=== PATIENT | male | born 1960 | race Two or more races ===

== ENCOUNTER 2020-06-27 12:45 | Outpatient (REF) | payer MEDICARE, MEDICAID, SELFPAY ==
--- NOTE | ~2020-06-27 | CT_ITS ---
EXAMINATION: CT SINUS WITHOUT CONTRAST CLINICAL INFORMATION: 60-year-old with nasal polyps and deviated septum. COMPARISON: 06/06/2014 CT. TECHNIQUE: Volumetric CT imaging of the paranasal sinuses was done with the addition of multiplanar reformatted reconstructions. This CT examination was performed using dose optimization techniques as appropriate, variously including the following: *Automated exposure control. *Adjustment of mA and/or kV according to patient size (this includes techniques or standardized protocols for targeted exams where dose is matched to indication/reason for exam; i.e. extremities or head). *Use of iterative reconstruction technique. DLP: 159.00 mGy-cm FINDINGS: Nasal Cavity: Nasal septum is deviated slightly to the right, stable in appearance. There is polypoid soft tissue density in both nasal cavities, improved on the left and stable on the right since the previous exam consistent with bilateral nasal polyposis. There is complete opacification of the olfactory recesses bilaterally consistent with nasal polyposis. There is deossification of multiple midline and paramidline bony structures consistent with chronic inflammatory changes similar to the previous exam. The nasopharyngeal soft tissues appear unremarkable. Maxillary Sinuses: Completely opacified with thickened bony mccloud consistent with chronic maxillary sinusitis with the ossification of the uncinate processes bilaterally stable in appearance. The ostiomeatal complexes are opacified bilaterally. There is periapical lucency surrounding the left maxillary molar which has developed since the previous exam suggesting the possibility of loosening or infection. Correlate with dental examination. Ethmoid Sinuses: There is complete opacification of the ethmoid complex bilaterally similar to the previous exam, with grossly intact orbital mccloud and fovea ethmoidalis. The orbital soft tissue contents appear grossly unremarkable. Frontal Sinuses: There is complete opacification of the frontal sinuses bilaterally with opacification of the frontal recesses with a probable opacified frontal bullar cell on the right. Sphenoid Sinus: The sphenoid sinus is completely opacified with thickened bony mccloud consistent with chronic sinusitis, unchanged, with opacification of the sphenoid ostia and expansile remodeling of the sphenoethmoidal recesses bilaterally consistent with polyposis, unchanged. Carotid canals are covered by bone. Additional Findings: Visualized mastoids and middle ear cavities are unopacified. Visualized intracranial structures are grossly unremarkable within the limitations of the study with limited visualization. CT/CT sinus wo con IMPRESSION: 1. Bilateral nasal polyposis, as described above, slightly improved on the left from previous exam. 2. Extensive pansinus opacification essentially stable from previous exam with areas of thickening and sclerosis of the paranasal sinus mccloud, unchanged in appearance, consistent with chronic sinus inflammatory disease.
== END 2020-06-27 12:46 | disposition home or self-care (01) ==
LOC: HO.CT 12:45
PROVIDERS: Visit Provider Otolaryngology
DX: J33.0 Polyp of nasal cavity (principal); J34.2 Deviated nasal septum
CPT/HCPCS: 70486

== ENCOUNTER 2020-12-06 11:49 | Outpatient (REF) | payer MEDICARE, MEDICAID, SELFPAY | END 2020-12-06 11:50 | disposition home or self-care (01) | LOC: HO.LAB 11:49 | PROVIDERS: PCP Internal Medicine; Visit Provider Internal Medicine | DX: Z20.822 Contact with and (suspected) exposure to COVID-19 (principal) | CPT/HCPCS: C9803; U0003; U0005 ==

== ENCOUNTER 2022-09-25 10:29 | Outpatient (REF) | payer MEDICARE, MEDICAID, SELFPAY ==
--- NOTE | ~2022-09-25 | XR_ITS ---
EXAMINATION: XR CHEST CLINICAL INFORMATION: Positive TB test COMPARISON: Previous chest x-ray September 2019 TECHNIQUE: 2 views of the chest were obtained. FINDINGS: The cardiac and mediastinal contours are normal. There are small symmetric faint 4 mm nodular densities at the lung bases likely corresponding to nipple shadows. The lungs are otherwise clear. No pleural effusion or pneumothorax. Degenerative changes of the spine. XR/XR chest 2V IMPRESSION: No evidence for acute disease in the chest.
== END 2022-09-25 10:30 | disposition home or self-care (01) ==
LOC: HO.XRAY 10:29
PROVIDERS: PCP Internal Medicine; Visit Provider Internal Medicine
DX: R76.11 Nonspecific reaction to tuberculin skin test without active tuberculosis (principal)
CPT/HCPCS: 71046

== ENCOUNTER 2022-11-04 15:01 | Emergency (ER) | payer MEDICARE, MEDICAID, SELFPAY ==
--- NOTE | ~2022-11-04 | XR_ITS ---
EXAMINATION: XR CHEST CLINICAL INFORMATION: Shortness of breath with chest pain COMPARISON: Previous dated 09/25/2022 TECHNIQUE: Frontal view of the chest was obtained. FINDINGS: Findings suggest mild hazy bilateral opacities the bases may represent areas of atelectasis or infiltrate. No failure or effusion. The cardiac silhouette is comparable The hilar regions are comparable XR/XR chest 1V IMPRESSION: Some patchy opacities at the bases could represent areas of early infiltrate. Recommend PA and lateral films when the patient is able.
[2022-11-04 15:02] VITALS: BP 135/81; PULSE 79; RESP 20; TEMP 36.3; O2SAT 94; BMI 24.4
--- NOTE | 2022-11-04 15:03 | ED_ITS ---
HPI - SOB/Dyspnea General Chief Complaint: Abdominal Pain Stated Complaint: sob Time Seen by Provider: 11/04/22 15:24 Source: patient Mode of arrival: ambulatory Limitations: no limitations History of Present Illness HPI Narrative: 62-year-old male history of asthma presents with shortness of breath and left- sided chest pain. The chest pain started yesterday. It has been intermittent. She is sharp and left-sided. The pain does not radiate. Worse with coughing and deep inspiration. He also describes some shortness of breath. He has been using his albuterol nebulizer and inhaler with no relief. His symptoms started a couple of weeks ago on a been progressively unsteadily getting worse. He denies any fevers or chills. His symptoms are worse with exertion. They are better with rest nebulizer treatment. Patient denies any lower extremity edema, recent travel or recent surgeries. Has no history of PE or DVT. Patient denies a family history of PE or DVT. Patient and significant other describes symptoms as severe which is why he presents to the emergency department Related Data Previous Rx's Medication Instructions Recorded albuterol sulfate 5 mg/mL(0.5 %) 2.5 mg (0.5 mL) inhalation Q6H PRN 12/19/21 solution for nebulization shortness of breath or wheezing #20 mL albuterol sulfate 90 mcg/actuation 2 puff inhalation Q6H PRN 12/19/21 aerosol inhaler shortness of breath or wheezing #6.7 grams Symbicort 160 mcg-4.5 2 puff PO BID 30 days #10.2 grams 02/01/22 mcg/actuation HFA aerosol inhaler (budesonide-formoterol) fluticasone propionate 50 2 spray intranasal DAILY PRN 03/07/22 mcg/actuation nasal allergy symptoms 30 days #15.8 mL spray,suspension cetirizine 10 mg tablet 10 mg PO DAILY PRN for allergies 06/17/22 #90 tabs ruxolitinib 1.5 % topical cream 1 appl topical BID #60 grams 10/09/22 (Opzelura) azithromycin 250 mg tablet 250 mg PO DAILY #6 tabs 11/04/22 prednisone 50 mg tablet 50 mg PO DAILY #5 tabs 11/04/22 Allergies Allergy/AdvReac Type Severity Reaction Status Date / Time No Known Allergies Allergy Verified 10/09/22 13:20 [No Known Allergies*] Review of Systems Review of Systems: CONSTITUTIONAL: Denies weight loss, fever and chills. HEENT: Denies changes in vision and hearing. RESPIRATORY: + SOB and cough. CV: Denies palpitations + CP. GI: Denies abdominal pain, nausea, vomiting and diarrhea. : Denies dysuria and urinary frequency. MSK: Denies myalgia and joint pain. SKIN: Denies rash and pruritus. NEUROLOGICAL: Denies headache and syncope. PSYCHIATRIC: Denies recent changes in mood. Denies anxiety and depression. All other ROS are negative unless in HPI PMFSH Past Medical History Medical History Allergic rhinitis Asthma Depression Overweight (BMI 25.0-29.9) Vitiligo Surgical History No pertinent past surgical history Family History Family History Father No problems noted. Mother No problems noted. Social History Social History Housing: Apartment Alcohol intake: never Patient Tobacco Use Status: Former Tobacco user Smoked in Last 30 Days: No e-Cigarette/Vaping Use: Never Used Second Hand Smoke Exposure: Yes Use of substances other than those prescribed or required for medical reasons: No Advance Directives: No Advance Directives Information Provided: No Current occupational status: retired and disabled Cognitive needs: No Hearing needs: No Vision needs: Yes (reading glasses) Physical Exam Vital Signs: Vital Signs: Last Vital Signs Temp 98.1 F 11/04/22 15:48 Pulse 70 11/04/22 15:48 Resp 15 11/04/22 15:48 BP 132/71 11/04/22 15:48 Pulse Ox 94 11/04/22 15:48 O2 Del Method Room Air 11/04/22 15:48 BMI result Body Mass Index 24.4 GEN: Well developed, no acute distress, alert, oriented HEENT: Normocephalic, atraumatic, normal external ears, nose appears normal, no oropharyngeal edema or exudates Eyes: Normal to appearance Neck: Supple, no lymphadenopathy Respiratory: Talks in complete sentences, no respiratory distress, clear to auscultation bilaterally Cardiovascular: Regular rate and rhythm, no murmurs rubs or gallops Abdomen: Soft, nontender, nondistended, no guarding, no rebound Back: No CVA tenderness Extremities: No clubbing cyanosis or edema Neurologic: No focal neurologic deficits, cranial nerves 2-12 intact, strength is 5/5 bilaterally Skin: No rash Course Course Course Narrative: RME - 62 yo male with history of asthma, sinusitis, seasonal allergies, depression and vitiligo who presents to the ER for evaluation of worsening SOB and asthma for the last 1 week, acutely worse since yesterday. He developed chest pain last night in the left lower chest. Has been using nebs and inhalers with no relief. Wheezy and tachypenic in triage, SpO2 94% Plan: CXR, labs, EKG, nebs. to be brought right back to treatment room Reevaluation(s) Reevaluation #1: Patient is feeling much better. He appears to be breathing much easier. Will discharge at this time on azithromycin and steroids. He can follow up with his regular provider in 2-3 days if needed. Time: 17:11 Medications Administered Discontinued Medications Generic Name Dose Route Start Last Admin Trade Name Freq PRN Reason Stop Dose Admin Albuterol Sulfate 10 mg 11/04/22 15:07 11/04/22 15:25 Albuterol Sulfate (0.083%) 2.5 Mg/3 Ml Vial.Neb INHALE 11/04/22 15:08 10 mg ONCE ONE Administration Albuterol Sulfate 7.5 mg/ 0 mg 11/04/22 15:28 11/04/22 15:32 Albuterol/Ipratropium 3 ml INHALE 11/04/22 15:29 Not Given ONCE ONE Prednisone 60 mg 11/04/22 15:28 11/04/22 16:15 Prednisone 20 Mg Tablet PO 11/04/22 15:29 60 mg ONCE ONE Administration Medical Decision Making Medical Decision Making MDM Narrative: Patient presents with chest pain and shortness of breath. Regarding the chest pain, symptoms started yesterday. I doubt this is cardiac in nature. This most likely pleuritic. Was not reproducible on examination. Will obtain a chest x- ray to rule out any acute cardiopulmonary disease. EKG was nonischemic. Will order set of cardiac enzymes to assure ourselves with this is not acute ischemi a. His symptoms started yesterday and therefore 1 tests should be diagnostic for cardiac/acute coronary syndrome etiology. Patient's predominant complaint is progressive shortness of breath over 2 weeks.. On exam, he had no wheezing, poor air movement but otherwise in no acute distress. I do not appreciate any wheezing. Again will order chest x-ray routine laboratory analysis to make sure there is no anemia, electrolyte abnormality. There was possible bronchitis, pneumonia, viral infection, seasonal allergies. Depending on patient's progress, he may warrant hospitalization. At this time, I will hold that decision until more data is available. Differential Diagnosis Differential Diagnoses: The differential diagnosis associated with the presentation includes (See above) Admission/Observation Consideration of admission/observation: Escalation of care including admission/observation considered Lab Data MDM Lab Attestation statement: I reviewed the patient's lab results. 11/04/22 15:46 11/04/22 15:46 Labs: Lab Results 11/04/22 11/04/22 11/04/22 Range/Units 15:46 15:46 15:47 WBC 7.8 (4.8-10.8) X10*3/uL RBC 5.09 (4.60-5.80) X10*6/uL Hgb 14.4 (14.0-18.0) g/dl Hct 45.8 (42.0-52.0) % MCV 90.0 (80.0-98.0) fL MCH 28.3 (27.0-33.0) pg MCHC 31.4 (31.0-36.0) g/dl RDW 12.1 (11.0-16.0) % Plt Count 226 (160-400) X10*3/uL MPV 10.8 (9.4-12.4) fL Immature Gran % (Auto) 0.3 (0.0-0.4) % Neut % (Auto) 39.6 L (45-73) % Lymph % (Auto) 32.0 (20-40) % Kingfisher % (Auto) 7.7 (2-11) % Eos % (Auto) 19.2 H (0-4) % Baso % (Auto) 1.2 (0-2) % Lymph # (Auto) 2.5 (1.2-4.9) X10*3/uL Kingfisher # (Auto) 0.6 (0.1-1.2) X10*3/uL Eos # (Auto) 1.5 H (0.0-0.4) X10*3/uL Baso # (Auto) 0.1 (0.0-0.2) X10*3/uL Abs Immat Gran (auto) 0.02 (0.00-0.03) X10*3/uL Absolute Neuts (auto) 3.1 (2.0-8.3) x10*3/uL Absolute Nucleated RBC 0.000 (0.0-0.012) X10*3/uL Nucleated RBC % (auto) 0.0 (0.0-0.2) /100WBC Sodium 140 (135-145) mmol/L Potassium 4.0 (3.3-5.1) mmol/L Chloride 109 H (96-108) mmol/L Carbon Dioxide 23 (22-29) mmol/L Anion Gap 12 (12-20) BUN 21 H (9-16) mg/dL Creatinine 1.23 (0.5-1.4) mg/dL Estim Creat Clear Calc 66.5 Estimated GFR 59 Random Glucose 103 (60-115) mg/dL Calcium 9.2 (8.4-10.2) mg/dL Magnesium 2.2 (1.6-2.6) mg/dL Total Bilirubin 0.5 (0.0-1.0) mg/dL Direct Bilirubin 0.2 (0.0-0.5) mg/dL AST 15 (5-37) U/L ALT 8 (0-40) U/L Alkaline Phosphatase 68 (39-117) U/L Troponin I High Sens < 2.7 (<3.5-35.0) ng/L B-Natriuretic Peptide (<100) pg/mL Total Protein 6.5 (6.5-8.0) g/dL Albumin 4.0 (3.5-5.0) g/dL 11/04/22 Range/Units 15:47 WBC (4.8-10.8) X10*3/uL RBC (4.60-5.80) X10*6/uL Hgb (14.0-18.0) g/dl Hct (42.0-52.0) % MCV (80.0-98.0) fL MCH (27.0-33.0) pg MCHC (31.0-36.0) g/dl RDW (11.0-16.0) % Plt Count (160-400) X10*3/uL MPV (9.4-12.4) fL Immature Gran % (Auto) (0.0-0.4) % Neut % (Auto) (45-73) % Lymph % (Auto) (20-40) % Kingfisher % (Auto) (2-11) % Eos % (Auto) (0-4) % Baso % (Auto) (0-2) % Lymph # (Auto) (1.2-4.9) X10*3/uL Kingfisher # (Auto) (0.1-1.2) X10*3/uL Eos # (Auto) (0.0-0.4) X10*3/uL Baso # (Auto) (0.0-0.2) X10*3/uL Abs Immat Gran (auto) (0.00-0.03) X10*3/uL Absolute Neuts (auto) (2.0-8.3) x10*3/uL Absolute Nucleated RBC (0.0-0.012) X10*3/uL Nucleated RBC % (auto) (0.0-0.2) /100WBC Sodium (135-145) mmol/L Potassium (3.3-5.1) mmol/L Chloride (96-108) mmol/L Carbon Dioxide (22-29) mmol/L Anion Gap (12-20) BUN (9-16) mg/dL Creatinine (0.5-1.4) mg/dL Estim Creat Clear Calc Estimated GFR Random Glucose (60-115) mg/dL Calcium (8.4-10.2) mg/dL Magnesium (1.6-2.6) mg/dL Total Bilirubin (0.0-1.0) mg/dL Direct Bilirubin (0.0-0.5) mg/dL AST (5-37) U/L ALT (0-40) U/L Alkaline Phosphatase (39-117) U/L Troponin I High Sens (<3.5-35.0) ng/L B-Natriuretic Peptide 25 (<100) pg/mL Total Protein (6.5-8.0) g/dL Albumin (3.5-5.0) g/dL Independent Interpretation I performed an independent interpretation of an: EKG (Normal sinus rhythm heart rate 70, no acute ST elevations depressions, normal intervals, normal EKG) and Plain X-Ray (Hyperinflated, no evidence of CHF or pneumonia) Independent Historian Clinical information obtained from an independent historian. History obtained from or confirmed by: Spouse Prescription Management I considered prescription management with: Pain Medication and Antibiotic Chronic Conditions Patient?s care impacted by: Other (Chronic sinusitis, reactive airway disease) Discharge Plan Discharge Clinical Impression: Asthma exacerbation, Atypical chest pain Patient Disposition: Home, Self-Care Instructions: Chest Pain (ED), Asthma (ED) Prescriptions: New prednisone 50 mg tablet 50 mg PO DAILY Qty: 5 0RF azithromycin 250 mg tablet 250 mg PO DAILY Qty: 6 0RF Rx Instructions: z pack as directed No Action fluticasone propionate 50 mcg/actuation spray,suspension 2 spray intranasal DAILY PRN (Reason: allergy symptoms) 30 Days Qty: 15.8 5RF cetirizine 10 mg tablet 10 mg PO DAILY PRN (Reason: for allergies) Qty: 90 3RF albuterol sulfate 90 mcg/actuation HFA aerosol inhaler 2 puff inhalation Q6H PRN (Reason: shortness of breath or wheezing) Qty: 6.7 0RF albuterol sulfate 5 mg/mL solution for nebulization 2.5 mg inhalation Q6H PRN (Reason: shortness of breath or wheezing) Qty: 20 0RF budesonide-formoterol [Symbicort] 160-4.5 mcg/actuation HFA aerosol inhaler 2 puff PO BID 30 Days Qty: 10.2 5RF Opzelura 1.5 % cream 1 appl topical BID Qty: 60 0RF Referrals: Kofi Witt MD [Primary Care Provider] - 3 days
--- NOTE | 2022-11-04 15:05 | ECG_ITS ---
Test Reason : SOB Blood Pressure : / mmHG Vent. Rate : 070 BPM Atrial Rate : 070 BPM P-R Int : 172 ms QRS Dur : 098 ms QT Int : 390 ms P-R-T Axes : 078 047 064 degrees QTc Int : 421 ms Normal sinus rhythm Normal ECG When compared with ECG of 12-SEP-2019 20:09, No significant change was found Referred By: Blanche Mart Electronically Signed By:DAVID ARAUZ
[2022-11-04] MEDS: Albuterol Sulfate (0.083%) 2.5 MG/3 ML VIAL.NEB 10 MG INHALE (15:25)
[2022-11-04 15:26] VITALS: RESP 18; O2SAT 94
[2022-11-04 15:48] VITALS: BP 132/71; PULSE 70; RESP 15; TEMP 36.7; O2SAT 94
[2022-11-04 15:52] LABS: MANUAL DIFF FLAG NO
--- NOTE | 2022-11-04 15:53 | PC.NURSE ---
pt alert and orientated, respiratory treatment completed upon initial assessment, minimal wheezing noted in the lower lobes upon auscultation, vss, pt on special weapons and tactics officer showing nsr, pt slighty diaphoretic, labs drawn by tech, will medicate per order, call sinha within reach.
[2022-11-04 15:56] LABS: Basophils Absolute Auto 0.1 X10*3/uL (0.0-0.2); Basophils Percent Auto 1.2 % (0-2); Eosinophils Absolute Auto 1.5 X10*3/uL (0.0-0.4); Eosinophils Percent Auto 19.2 % (0-4); Hematocrit 45.8 % (42.0-52.0); Hemoglobin 14.4 g/dl (14.0-18.0); Imm Gran Abs Auto 0.02 X10*3/uL (0.00-0.03); Imm Gran Pct Auto 0.3 % (0.0-0.4); Lymphocytes Absolute Auto 2.5 X10*3/uL (1.2-4.9); Mean Corpuscular HGB Conc 31.4 g/dl (31.0-36.0); Mean Corpuscular Hemoglobin 28.3 pg (27.0-33.0); Mean Platelet Volume 10.8 fL (9.4-12.4); Monocytes Absolute Auto 0.6 X10*3/uL (0.1-1.2); Monocytes Percent Auto 7.7 % (2-11); Neutrophils Absolute Auto 3.1 x10*3/uL (2.0-8.3); Neutrophils Percent Auto 39.6 % (45-73); Platelet Count 226 X10*3/uL (160-400); Red Blood Count 5.09 X10*6/uL (4.60-5.80); Red Cell Distribution Width 12.1 % (11.0-16.0); White Blood Count 7.8 X10*3/uL (4.8-10.8)
[2022-11-04] MEDS: predniSONE 20 MG TABLET 60 MG PO (16:15)
--- NOTE | 2022-11-04 16:15 | PC.NURSE ---
pt alert and orientated, pt states he uses less WOB after albuterol treatment, pt medicated with prednisone per provider order, NSR, VSS, pt resting comfortably, call sinha placed within reach.
[2022-11-04 16:17] LABS: B Type Natriuretic Peptide 25 pg/mL (<100)
[2022-11-04 16:20] LABS: Alanine Aminotransferase 8 U/L (0-40); Alkaline Phosphatase 68 U/L (39-117); Anion Gap 12 (12-20); Aspartate Amino Transferase 15 U/L (5-37); Bilirubin Direct 0.2 mg/dL (0.0-0.5); Bilirubin Total 0.5 mg/dL (0.0-1.0); Blood Urea Nitrogen 21 mg/dL (9-16); Calcium 9.2 mg/dL (8.4-10.2); Carbon Dioxide 23 mmol/L (22-29); Chloride 109 mmol/L (96-108); Creatinine Clr Calc Pharmacy 66.5; Estimated Glomerular Filt Rate 59; Glucose Random 103 mg/dL (60-115); Magnesium 2.2 mg/dL (1.6-2.6); Sodium 140 mmol/L (135-145); Total Protein 6.5 g/dL (6.5-8.0)
[2022-11-04 16:28] LABS: Troponin-I High Sensitivity < 2.7 ng/L (<3.5-35.0)
[2022-11-04 17:30] VITALS: BP 121/80; PULSE 67; RESP 12; TEMP 36.6; O2SAT 92
--- NOTE | 2022-11-04 17:34 | PC.NURSE ---
pt alert and oriented, estimator paperboard boxes removed, NSR on monitor, VSS, pt discharged and verbalized education.
== END 2022-11-04 17:35 | disposition home or self-care (01) ==
PROVIDERS: Physician Assistant; Emergency Provider Emergency Medicine; PCP Internal Medicine
DX: J45.901 Unspecified asthma with (acute) exacerbation (principal); R07.89 Other chest pain; R06.02 Shortness of breath; Z79.899 Other long term (current) drug therapy
CPT/HCPCS: 36415; 71045; 80048; 80076; 83735; 83880; 84484; 85025; 93005; 94640; 99284; 99285

== ENCOUNTER → 2022-11-06 12:07 | Outpatient (BNVA) | payer MEDICARE, MEDICAID, SELFPAY | PROVIDERS: PCP Internal Medicine; Visit Provider Physician Assistant | DX: Z12.11 Encounter for screening for malignant neoplasm of colon (principal); J45.901 Unspecified asthma with (acute) exacerbation; Z79.52 Long term (current) use of systemic steroids; Z79.899 Other long term (current) drug therapy | CPT/HCPCS: 99202 ==

== ENCOUNTER 2022-11-27 14:37 | Outpatient (AMB) | payer MEDICARE, MEDICAID, SELFPAY ==
[2022-11-27 14:39] VITALS: BP 110/70; PULSE 70; O2SAT 92; BMI 23.7
--- NOTE | 2022-11-27 14:39 | MHC.PC.OV ---
Vital Signs 11/27/22 14:39 Height 6 ft Weight 175 lb BMI 23.7 BP 110/70 Blood Pressure Location Lt brachial Position Sitting Pulse 70 Pulse Source Pulse Oximeter Temp Source Skin Pulse Oximetry (%) 92 Oxygen Delivery Method Room Air Intake Visit Reasons: [facility] [place]-Asthma Intake Note: Patient is here to follow-up after a visit the emergency department at [facility] [place] on 11/04 for asthma Services Rep Required: No Allergies No Known Allergies [No Known Allergies*] Allergy (Verified 11/27/22 14:52) Medication List - Last Reconciled 11/27/22 by ZONIA Mckeon albuterol sulfate 90 mcg/actuation 2 puffs inhalation Q6H PRN albuterol sulfate 2.5 mg (0.5 mL) inhalation Q6H PRN cetirizine 10 mg PO DAILY PRN fluticasone propionate 50 mcg/actuation 2 sprays intranasal DAILY PRN 30 days ruxolitinib 1.5% (Opzelura) 1 appl topical BID Symbicort 160-4.5 mcg/actuation (budesonide-formoterol) 2 puffs PO BID 30 days NS Tobacco use date assessed: 11/27/22 Fall risk assessment: No Falls in past year Last assessed Fall Risk: 11/27/22 HPI [facility] [place]-Asthma HPI Details Patient is a 62-year-old male who presents today to follow-up on [facility] visit 11/04/2022 due to shortness of breath. Patient of Dr. Witt. Medical history significant for asthma, allergic rhinitis, vitiligo among others. Patient presented to emergency department with shortness of breath and left-sided chest pain. Blood work stable, chest x-ray hyperinflated, no evidence of congestive heart failure or pneumonia; EKG was normal. Patient was diagnosed with asthma exacerbation and discharged home with prednisone for 5 days and Z-Basilio. Today, patient reports that he is feeling better, although he still reports intermittent mild wheezing and shortness of breath with activity. Denies cough. Reports clear nasal discharge, reports he will be having sinus surgery soon, will be back for preop clearance next month. Denies shortness of breath at rest or chest pain. Denies fever or chills. Reports that he needs refill on albuterol inhaler. [facility] Medical History Allergic rhinitis Asthma Depression Overweight (BMI 25.0-29.9) Vitiligo Surgical History No pertinent past surgical history Family History Father No problems noted. Mother No problems noted. Social History Housing: Apartment Alcohol intake: never Patient Tobacco Use Status: Former Tobacco user e-Cigarette/Vaping Use: Never Used Second Hand Smoke Exposure: Yes Current occupational status: retired and disabled Cognitive needs: No Hearing needs: No Vision needs: Yes (reading glasses) Questionnaire Thrive Questionnaire Date Thrive assessed: 10/09/22 AUDIT C Alcohol Use Questionnaire (AUDIT-C) 1. How often do you have a drink containing alcohol?: Never 3. How often do you have six or more drinks on one occasion?: Never Total Score: 0 Score Reviewed/Action Taken: No PINO-7 AMB Questionnaire PINO-7 Date PINO - 7 assessed: 10/09/22 Source: Developed by Drs. Bebo George, Lida Somers, Maxwell Andres and colleagues, with an educational darian from [employer]. Review of Systems Const Denies body aches, Denies chills, Denies fever(s) and Denies headache(s) Eyes Denies change in vision ENT Denies dizziness, Denies otalgia, Denies headache(s), Denies nasal discharge, Denies sinus pain and Denies sore throat Card Denies chest pain, Denies edema, Denies lightheadedness, Denies dyspnea and Reports dyspnea on exertion Resp Denies cough, Denies dyspnea, Reports dyspnea on exertion and Reports wheezing GI Denies abdominal pain Denies dysuria Musc Denies myalgias Skin/Breast Denies rash Neuro Denies dizziness and Denies headache(s) Aller/Immun Reports wheezing Physical exam (Primary Care) Vital Signs: Last Vital Signs Pulse 70 11/27/22 14:39 BP 110/70 11/27/22 14:39 Pulse Ox 92 11/27/22 14:39 Oxygen Delivery Method Room Air 11/27/22 14:39 BMI result Body Mass Index 23.7 Tobacco/Smoking Status: Tobacco use Status Tobacco use date assessed 11/27/22 11/27/22 14:45 Patient Tobacco Use Status Former Tobacco user 11/27/22 14:45 e-Cigarette/Vaping Use Never Used 11/27/22 14:45 Thrive Assessment: Date of Thrive Assessment Date Thrive assessed 10/09/22 11/27/22 14:45 Const General: cooperative and no acute distress Orientation/consciousness: patient oriented x3 HENMT Head: Yes normocephalic and Yes atraumatic Ears: TM's normal bilaterally Face and sinus: Yes sinuses nontender Mouth: oropharynx normal and moist mucous membranes Throat: Yes posterior oropharynx normal Eyes General: appearance normal, both eyes and all related structures Pupils: Equal, round and reactive pupils present Neck Neck: Yes normal visual inspection, Yes full ROM and Yes no lymphadenopathy Resp Effort & Inspection: normal respiratory effort and able to speak in complete sentences Auscultation: clear to auscultation bilaterally, no crackles, no rales, no rhonchi and no wheezes Cardio Rate: regular rate Rhythm: regular rhythm Heart sounds: S1 normal heart sound present and S2 normal heart sound present GI Auscultation: normal bowel sounds Skin General skin exam: no rashes or lesions noted Neuro General: patient oriented x3 Cranial nerves: Yes Equal, round and reactive pupils present Gait exam (Neuro): Normal gait present Extrem General: Yes full ROM and No edema Assessment and Plan Assessment & Plan (1) Asthma exacerbation: Code(s): J45.901 - Unspecified asthma with (acute) exacerbation Plan: Lungs are clear to auscultation, although patient reports intermittent wheezing and shortness of breath on exertion, he reports feeling better. Due to patient being still symptomatic will treat with prednisone for 5 days. Patient is to continue Symbicort, albuterol inhaler p.r.n., and cetirizine. Patient has finished antibiotics. Follow-up if no improvement after finishing treatment. Keep appointment with PCP as scheduled or follow-up sooner as needed. Patient agreed with the plan. Medications: New albuterol sulfate 90 mcg/actuation (Ventolin HFA) 2 puffs inhalation Q4-6H PRN 8.5 grams 1RF shortness of breath or wheezing J45.901 - Unspecified asthma with (acute) exacerbation prednisone 40 mg (2 x 20 mg) PO DAILY 5 days 10 tabs 0RF J45.901 - Unspecified asthma with (acute) exacerbation Discontinued albuterol sulfate 90 mcg/actuation Discontinued Reason: Doctor's Order 2 puffs inhalation Q6H PRN 6.7 grams 0RF shortness of breath or wheezing Coding Level of Care Code Est Pt Level 3 (98812) Diagnoses Asthma exacerbation J45.901
== END 2022-11-27 15:31 | disposition home or self-care (01) ==
PROVIDERS: PCP Internal Medicine; Visit Provider Nurse Practitioner Family
DX: J45.901 Unspecified asthma with (acute) exacerbation (principal)
CPT/HCPCS: 99213

== ENCOUNTER 2022-12-31 10:34 | Outpatient (AMB) | payer MEDICARE, MEDICAID, SELFPAY ==
--- NOTE | 2022-12-31 10:39 | MHC.PC.OV ---
Vital Signs 12/31/22 10:40 Height 6 ft Weight 178 lb 2 oz BMI 24.2 BP 120/78 Blood Pressure Location Lt brachial Position Sitting Pulse 70 Pulse Source Pulse Oximeter Pulse Oximetry (%) 96 Oxygen Delivery Method Room Air Intake Visit Reasons: pre-op Intake Note: Patient is here for a Pre-op for sinus surgery scheduled Dr. John (ENT in [place] )with on 01/23/23. Web Designer Required: No Service Correspondent: Not Required per policy Accompanied by: Self / Same As Patient Allergies No Known Allergies [No Known Allergies*] Allergy (Verified 12/31/22 10:40) Medication List - Last Reconciled 12/31/22 by Den Wells MD albuterol sulfate 90 mcg/actuation (Ventolin HFA) 2 puffs inhalation Q4-6H PRN albuterol sulfate 2.5 mg (0.5 mL) inhalation Q6H PRN cetirizine 10 mg PO DAILY PRN fluticasone propionate 50 mcg/actuation 2 sprays intranasal DAILY PRN 30 days prednisone 40 mg (2 x 20 mg) PO DAILY 5 days ruxolitinib 1.5% (Opzelura) 1 appl topical BID Symbicort 160-4.5 mcg/actuation (budesonide-formoterol) 2 puffs PO BID 30 days NS Tobacco use date assessed: 12/31/22 HPI pre-op HPI Details having sinus surgery next month; has controlled asthma; no history of CAD [facility] Medical History Allergic rhinitis Asthma Depression Overweight (BMI 25.0-29.9) Vitiligo Surgical History No pertinent past surgical history Family History Father No problems noted. Mother No problems noted. Social History Housing: Apartment Alcohol intake: never Patient Tobacco Use Status: Former Tobacco user e-Cigarette/Vaping Use: Never Used Second Hand Smoke Exposure: Yes service: No Current occupational status: retired and disabled Cognitive needs: No Hearing needs: No Vision needs: Yes (reading glasses) Questionnaire Thrive Questionnaire Date Thrive assessed: 10/09/22 PINO-7 AMB Questionnaire PINO-7 Date PINO - 7 assessed: 10/09/22 Source: Developed by Drs. Bebo George, Lida Somers, Maxwell Andres and colleagues, with an educational darian from [employer]. Review of Systems Const Denies chills, Denies fatigue, Denies headache(s) and Denies weight loss Eyes Denies change in vision, Denies diplopia and Denies eye pain ENT Denies vertigo, Denies dizziness, Denies headache(s) and Denies nasal discharge Card Denies chest pain, Denies rapid heart rate and Denies dyspnea on exertion Resp Denies chest congestion, Denies cough, Denies pain with cough and Denies dyspnea on exertion GI Denies abdominal pain, Denies hematochezia and Denies change in bowel habits Musc Denies myalgias, Denies arthralgias and Denies joint swelling Skin/Breast Denies lesions and Denies unusual bruising Neuro Denies vertigo, Denies dizziness, Denies headache(s) and Denies focal weakness Endo Denies fatigue Physical exam (Primary Care) Vital Signs: Last Vital Signs Pulse 70 12/31/22 10:40 BP 120/78 12/31/22 10:40 Pulse Ox 96 12/31/22 10:40 Oxygen Delivery Method Room Air 12/31/22 10:40 BMI result Body Mass Index 24.2 Tobacco/Smoking Status: Tobacco use Status Tobacco use date assessed 12/31/22 12/31/22 10:51 Patient Tobacco Use Status Former Tobacco user 12/31/22 10:51 e-Cigarette/Vaping Use Never Used 12/31/22 10:51 Thrive Assessment: Date of Thrive Assessment Date Thrive assessed 10/09/22 12/31/22 10:51 Const General: cooperative, healthy appearing and no acute distress Orientation/consciousness: oriented to person, oriented to place and oriented to time HENVT Head: Yes normal to inspection, Yes normocephalic and Yes atraumatic Mouth: Normal oral and palatal mucosa present and tongue normal Throat: Yes posterior oropharynx normal and Yes uvula midline Eyes General: appearance normal, both eyes and all related structures Neck Neck: Yes normal visual inspection, Yes full ROM and Yes no lymphadenopathy Thyroid: Thyroid normal Carotids: normal carotid upstroke Chest Chest palpation & inspection: normal inspection of the chest Resp Effort & Inspection: normal respiratory effort and able to speak in complete sentences Auscultation: clear to auscultation bilaterally Cardio Jugular venous distension: no JVD Palpation: normal PMI Rate: regular rate Rhythm: regular rhythm Heart sounds: S1 normal heart sound present and S2 normal heart sound present GI Inspection: Yes normal to inspection Palpation (GI): Soft to palpation and No hepatosplenomegaly present Auscultation: normal bowel sounds General: Yes no CVA tenderness Back/Spine/Pelvis Back: no CVA tenderness Skin General skin exam: no rashes or lesions noted Neuro General: oriented to person, oriented to place and oriented to time Extrem General: Yes normal to inspection and Yes full ROM Assessment and Plan Assessment & Plan (1) Preop exam for internal medicine: Code(s): Z01.818 - Encounter for other preprocedural examination Plan: low risk of cardiovascular complications; cleared for surgery (2) Asthma: Code(s): J45.909 - Unspecified asthma, uncomplicated Qualifiers: Asthma severity: moderate Asthma persistence: persistent Asthma complication type: uncomplicated Qualified Code(s): J45.40 - Moderate persistent asthma, uncomplicated Plan: well controlled Coding Level of Care Code Est Pt Level 4 (62730) Diagnoses Preop exam for internal medicine Z.81 Asthma J45.40 Asthma severity: moderate Asthma persistence: persistent Asthma complication type: uncomplicated
[2022-12-31 10:40] VITALS: BP 120/78; PULSE 70; O2SAT 96; BMI 24.2
== END 2022-12-31 11:03 | disposition home or self-care (01) ==
PROVIDERS: PCP Internal Medicine; Visit Provider Internal Medicine
DX: Z01.818 Encounter for other preprocedural examination (principal); J45.40 Moderate persistent asthma, uncomplicated
CPT/HCPCS: 99214

== ENCOUNTER 2023-02-12 12:36 | Emergency (ER) | payer MEDICARE, MEDICAID, SELFPAY ==
--- NOTE | ~2023-02-12 | CT_ITS ---
EXAMINATION: CT ABDOMEN AND PELVIS WITHOUT CONTRAST CLINICAL INFORMATION: Left flank pain. Acute kidney insufficiency. COMPARISON: None available. TECHNIQUE: Multidetector volumetric imaging was performed from the superior aspect of the liver through the pubic symphysis. Sagittal and coronal reformatted images were obtained on the technologist's workstation. This CT examination was performed using dose optimization techniques as appropriate, variously including the following: *Automated exposure control *Adjustment of mA and/or kV according to patient size (this includes techniques or standardized protocols for targeted exams where dose is matched to indication/reason for exam; i.e. extremities or head) *Use of iterative reconstruction technique DLP: 455 mGy-cm FINDINGS: LUNG BASES: The visualized lung bases are unremarkable. LIVER, GALLBLADDER, AND BILIARY TREE: The liver is normal in size, shape, and attenuation. No focal hepatic lesion or biliary ductal dilatation is present. The gallbladder is unremarkable with no evidence of radiopaque gallstones, gallbladder wall thickening, or obvious pericholecystic inflammatory changes. PANCREAS: Unremarkable. SPLEEN: Unremarkable. ADRENAL GLANDS: Unremarkable. KIDNEYS AND URETERS: The kidneys are normal in size, shape, and attenuation. No hydronephrosis, hydroureter, or calculi seen. No perinephric stranding. BLADDER: Unremarkable. GASTROINTESTINAL TRACT: The small and large bowel are unremarkable. The appendix is unremarkable. ABDOMINAL WALL: No significant hernia is appreciated. LYMPH NODES: Normal. VASCULAR: Unremarkable. PELVIC VISCERA: Slightly enlarged measuring 4 x 5 cm in AP and transverse dimension OSSEOUS STRUCTURES: Unremarkable. CT/CT abdomen pelvis wo IV con IMPRESSION: Slightly enlarged prostate gland. Otherwise unremarkable exam. The kidneys are normal appearing. Fleischner guidelines were followed.
--- NOTE | ~2023-02-12 | XR_ITS ---
EXAMINATION: XR RIBS, LEFT CLINICAL INFORMATION: Reason for Exam L lower rib pain COMPARISON: Chest radiograph 11/04/2022 TECHNIQUE: 3 views of the Left ribs. 1 view of the chest. FINDINGS: No displaced rib fracture. Clear lungs. No pneumothorax. No pleural effusion. Normal cardiomediastinal silhouette. XR/XR ribs LT min 3V w CXR1V IMPRESSION: No displaced rib fracture. Please note that rib radiographs have low sensitivity for detection of rib fractures and if continued clinical concern CT chest is advised.
[2023-02-12 13:33] VITALS: BP 121/69; PULSE 59; RESP 18; TEMP 36.6; O2SAT 95; BMI 23.9
--- NOTE | 2023-02-12 13:37 | ED_ITS ---
HPI - General Adult General Chief complaint: Back Pain/Injury Stated complaint: L side back pain Time Seen by Provider: 02/12/23 19:41 History of Present Illness HPI narrative: Patient is a 62-year-old male presents emergency department for evaluation of left flank pain. He reports sudden onset 3 days ago. He noticed it while standing at home without any precipitating injury your movements such as forward bending or lifting. The pain has been constant in nature with varying intensity since its onset. It is made worse with particular movements. Has had some intermittent radiation to the left thigh. He has had minimal relief with Tylenol. He reports a history of similar pain in the past, uncertain of the etiology and states he received a prescription for ?a long pill? that relieves the pain. Denies fevers, chills, dysuria, hematuria, urinary frequency/urgency/hesitancy, constipation, diarrhea, abdominal pain, nausea, vomiting, saddle anesthesia, numbness or tingling of the extremities. Related Data Previous Rx's Medication Instructions Recorded albuterol sulfate 5 mg/mL(0.5 %) 2.5 mg (0.5 mL) inhalation Q6H PRN 12/19/21 solution for nebulization shortness of breath or wheezing #20 mL fluticasone propionate 50 2 spray intranasal DAILY PRN 03/07/22 mcg/actuation nasal allergy symptoms 30 days #15.8 mL spray,suspension cetirizine 10 mg tablet 10 mg PO DAILY PRN for allergies 06/17/22 #90 tabs ruxolitinib 1.5 % topical cream 1 appl topical BID #60 grams 10/09/22 (Opzelura) albuterol sulfate 90 mcg/actuation 2 puff inhalation Q4-6H PRN 11/27/22 aerosol inhaler (Ventolin HFA) shortness of breath or wheezing #8.5 grams prednisone 20 mg tablet 40 mg (2 x 20 mg) PO DAILY 5 days 11/27/22 #10 tabs Symbicort 160 mcg-4.5 2 puff PO BID 30 days #10.2 grams 12/26/22 mcg/actuation HFA aerosol inhaler (budesonide-formoterol) cyclobenzaprine 10 mg tablet 10 mg PO TID PRN muscle spasm #10 02/12/23 tabs Allergies Allergy/AdvReac Type Severity Reaction Status Date / Time No Known Allergies Allergy Verified 02/12/23 13:33 [No Known Allergies*] Review of Systems 2 Review of Systems: Yes all other systems are reviewed and are negative [facility] Past Medical History Attestation statement: The following information was validated with the patient. Source: old records reviewed Medical History Depression Vitiligo Overweight (BMI 25.0-29.9) Allergic rhinitis Asthma Surgical History No pertinent past surgical history Family History Family History Father No problems noted. Mother No problems noted. Social History Social History Housing: Apartment Alcohol intake: never Patient Tobacco Use Status: Former Tobacco user e-Cigarette/Vaping Use: Never Used Second Hand Smoke Exposure: Yes Advance Directives: No Advance Directives Information Provided: No service: No Current occupational status: retired and disabled Cognitive needs: No Hearing needs: No Vision needs: Yes (reading glasses) Physical Exam ED Vital Signs: Vital Signs - 24 hr 02/12/23 13:33 02/12/23 20:52 Temperature 97.9 F 98.1 F Pulse Rate 59 56 Respiratory Rate 18 16 Blood Pressure 121/69 127/64 Pulse Oximetry 95 97 Oxygen Delivery Method Room Air Room Air BMI result Body Mass Index 23.9 Appearance: Alert.?Oriented to person, place and time. No acute distress.?Normal affect. Neck: Normal inspection.? Neck supple.?? CVS: Heart sounds normal. Normal heart rate and rhythm.? Pulses normal.?? Respiratory: No respiratory distress.? Lung sounds clear to auscultation bilaterally?? Abdomen: Soft and non-tender. Normoactive bowel sounds. Left CVA tenderness Back: No tenderness upon palpation to the lumbar region? Skin: Skin warm and dry.? Normal skin color.? Normal skin turgor.? No rashes or lesions? Extremities: No lower extremity edema.? No calf ttp? Neuro: Moves all extremities spontaneously. Sensation intact bilaterally. No focal neuro deficits. Ambulates with normal steady gait. Course Course Course Narrative: RME: 62-year-old male with a medical history of vitiligo, asthma complaining of left flank pain x1 week with intermittent radiation down LLE. Denies urinary symptoms, injury chest trauma or fall + left CVAT noted. No rash. No midline spinous tenderness Labs, rib x-ray, UA ordered Full HPI, ROS and PE to be performed by primary ED provider. Reevaluation(s) Reevaluation #1: CT of the abdomen and pelvis revealing a slightly enlarged prostate gland otherwise unremarkable without acute findings. Discussed these findings with patient. Pain was alleviated with cyclobenzaprine. Likely muscular strain. Advised outpatient follow-up with primary care provider, rest, ice, gentle stretching exercises. Reviewed worrisome signs and symptoms that would warrant re-evaluation in the emergency department. Stable for discharge. Time: 22:17 Medications Administered Discontinued Medications Generic Name Dose Route Start Last Admin Trade Name Freq PRN Reason Stop Dose Admin Cyclobenzaprine HCl 10 mg 02/12/23 20:04 02/12/23 20:38 Cyclobenzaprine Hcl 10 Mg Tablet PO 02/12/23 20:05 10 mg ONCE ONE Administration Sodium Chloride 1,000 mls @ 999 mls/hr 02/12/23 20:15 02/12/23 20:47 Ns IV 02/12/23 21:15 999 mls/hr .Q1H1M YADIRA Administration Lidocaine 1 patch 02/12/23 20:04 02/12/23 20:38 Lidocaine 4 % Patch Adh..Patch TRANSDERMA 02/12/23 20:05 1 patch ONCE ONE Administration Protocol Medical Decision Making Medical Decision Making [facility] Narrative: Patient is a 62 old male who presents emergency department for evaluation of left flank pain as per HPI, overall he is well-appearing, nontoxic, afebrile. He does have left CVA tenderness upon palpation, the lumbar region is without tenderness of the paraspinal muscles, no midline tenderness, step-offs, deformities. Reviewed urinalysis which does not show evidence of infection or microscopic hematuria. CMP revealing a mild JULIA with BUN consistent with baseline, creatinine of 1.4 with most recent comparison 1.2, urine is concentrated I suspect most likely these are due to mild dehydration, patient to receive 1 L normal saline IVF. Plan to obtain CT of the abdomen pelvis to exclude hydronephrosis, ureteral calculi, or additional etiology. Less likely to be gastrointestinal etiology; diverticulitis, colitis, obstruction, appendicitis. Muscular strain/ Radicular pain is possible as well. Patient to receive cyclobenzaprine and lidocaine patch while awaiting CT scan. Differential Diagnosis Differential Diagnoses: The differential diagnosis associated with the presentation includes (As noted above) Admission/Observation Consideration of admission/observation: Escalation of care including admission/observation considered (I initially considered admission upon initial evaluation, See course narrative for further detail after workup) Lab Data MDM Lab Attestation statement: I reviewed the patient's lab results. (See narrative above for further detail) 02/12/23 13:48 02/12/23 13:48 Labs: Lab Results 02/12/23 Range/Units 13:48 WBC 6.6 (4.8-10.8) X10*3/uL RBC 4.79 (4.60-5.80) X10*6/uL Hgb 13.6 L (14.0-18.0) g/dl Hct 44.0 (42.0-52.0) % MCV 91.9 (80.0-98.0) fL MCH 28.4 (27.0-33.0) pg MCHC 30.9 L (31.0-36.0) g/dl RDW 12.4 (11.0-16.0) % Plt Count 225 (160-400) X10*3/uL MPV 11.8 (9.4-12.4) fL Immature Gran % (Auto) 0.3 (0.0-0.4) % Neut % (Auto) 43.8 L (45-73) % Lymph % (Auto) 32.8 (20-40) % [place] % (Auto) 10.7 (2-11) % Eos % (Auto) 11.2 H (0-4) % Baso % (Auto) 1.2 (0-2) % Lymph # (Auto) 2.2 (1.2-4.9) X10*3/uL [place] # (Auto) 0.7 (0.1-1.2) X10*3/uL Eos # (Auto) 0.7 H (0.0-0.4) X10*3/uL Baso # (Auto) 0.1 (0.0-0.2) X10*3/uL Abs Immat Gran (auto) 0.02 (0.00-0.03) X10*3/uL Absolute Neuts (auto) 2.9 (2.0-8.3) x10*3/uL Absolute Nucleated RBC 0.000 (0.0-0.012) X10*3/uL Nucleated RBC % (auto) 0.0 (0.0-0.2) /100WBC Sodium 140 (135-145) mmol/L Potassium 4.2 (3.3-5.1) mmol/L Chloride 106 (96-108) mmol/L Carbon Dioxide 25 (22-29) mmol/L Anion Gap 13 (12-20) BUN 23 H (9-16) mg/dL Creatinine 1.44 H (0.5-1.4) mg/dL Estim Creat Clear Calc 56.8 Estimated GFR 49 Random Glucose 69 (60-115) mg/dL Calcium 9.4 (8.4-10.2) mg/dL Urine Color Yellow Urine Appearance Clear Urine pH 5.5 (5.0-9.0) Ur Specific [place] >= 1.030 H (1.005-1.025) Urine Protein Trace (Neg-Trace) mg/dL Urine Glucose (UA) Negative (Negative) mg/dL Urine Ketones Trace (Negative) mg/dL Urine Blood Negative (Negative) Urine Nitrite Negative (Negative) Ur Leukocyte Esterase Negative (Negative) Radiology Impression Discussion of test interpretation with radiology: I have reviewed the radiologist's reading. Radiologist Impression: CT/CT abdomen pelvis wo IV con IMPRESSION: Slightly enlarged prostate gland. Otherwise unremarkable exam. The kidneys are normal appearing. External Record Review External record reviewed: Outpatient record Prescription Management I considered prescription management with: Pain Medication Discharge Plan Discharge Clinical Impression: Thoracic back pain Patient Disposition: Home, Self-Care Additional Instructions: CT did not show any findings to explain the pain that your experiencing. I sent a prescription for cyclobenzaprine to your pharmacy, do not drive, drink alcohol, or work while taking this medication. Please contact your primary care provider to arrange for a follow-up visit. Return back to emergency department any new or worsening symptoms or concerns. Prescriptions: New cyclobenzaprine 10 mg tablet 10 mg PO TID PRN (Reason: muscle spasm) Qty: 10 0RF No Action fluticasone propionate 50 mcg/actuation spray,suspension 2 spray intranasal DAILY PRN (Reason: allergy symptoms) 30 Days Qty: 15.8 5RF cetirizine 10 mg tablet 10 mg PO DAILY PRN (Reason: for allergies) Qty: 90 3RF budesonide-formoterol [Symbicort] 160-4.5 mcg/actuation HFA aerosol inhaler 2 puff PO BID 30 Days Qty: 10.2 5RF albuterol sulfate 5 mg/mL solution for nebulization 2.5 mg inhalation Q6H PRN (Reason: shortness of breath or wheezing) Qty: 20 0RF albuterol sulfate [Ventolin HFA] 90 mcg/actuation HFA aerosol inhaler 2 puff inhalation Q4-6H PRN (Reason: shortness of breath or wheezing) Qty: 8.5 1RF prednisone 20 mg tablet 40 mg PO DAILY 5 Days Qty: 10 0RF Opzelura 1.5 % cream 1 appl topical BID Qty: 60 0RF Referrals: Kofi Witt MD [Primary Care Provider] - Interventions: ED Discharge Assessment Last Done: 02/12/23 22:27 Discharge Date/Time: 02/12/23 22:28
[2023-02-12 14:02] LABS: MANUAL DIFF FLAG NO
[2023-02-12 14:05] LABS: Appearance Urine Clear; Color Urine Yellow; Glucose Urine UA Negative (Negative); Leukocyte Esterase Urine Negative (Negative); Nitrite Urine Negative (Negative); PH 5.5 (5.0-9.0); Specific Gravity - Urine >= 1.030 (1.005-1.025); Urine Blood Negative (Negative); Urine Ketones Trace mg/dL (Negative); Urine Protein Trace mg/dL (Neg-Trace)
[2023-02-12 14:09] LABS: Basophils Absolute Auto 0.1 X10*3/uL (0.0-0.2); Basophils Percent Auto 1.2 % (0-2); Eosinophils Absolute Auto 0.7 X10*3/uL (0.0-0.4); Eosinophils Percent Auto 11.2 % (0-4); Hemoglobin 13.6 g/dl (14.0-18.0); Imm Gran Abs Auto 0.02 X10*3/uL (0.00-0.03); Imm Gran Pct Auto 0.3 % (0.0-0.4); Lymphocytes Absolute Auto 2.2 X10*3/uL (1.2-4.9); Lymphocytes Percent Auto 32.8 % (20-40); Mean Corpuscular HGB Conc 30.9 g/dl (31.0-36.0); Mean Corpuscular Hemoglobin 28.4 pg (27.0-33.0); Mean Corpuscular Volume 91.9 fL (80.0-98.0); Mean Platelet Volume 11.8 fL (9.4-12.4); Monocytes Absolute Auto 0.7 X10*3/uL (0.1-1.2); Monocytes Percent Auto 10.7 % (2-11); Neutrophils Absolute Auto 2.9 x10*3/uL (2.0-8.3); Neutrophils Percent Auto 43.8 % (45-73); Platelet Count 225 X10*3/uL (160-400); Red Blood Count 4.79 X10*6/uL (4.60-5.80); Red Cell Distribution Width 12.4 % (11.0-16.0); White Blood Count 6.6 X10*3/uL (4.8-10.8)
[2023-02-12 14:23] LABS: Anion Gap 13 (12-20); Blood Urea Nitrogen 23 mg/dL (9-16); Calcium 9.4 mg/dL (8.4-10.2); Carbon Dioxide 25 mmol/L (22-29); Chloride 106 mmol/L (96-108); Creatinine Clr Calc Pharmacy 56.8; Estimated Glomerular Filt Rate 49; Glucose Random 69 mg/dL (60-115); Potassium 4.2 mmol/L (3.3-5.1); Sodium 140 mmol/L (135-145)
[2023-02-12] MEDS: Cyclobenzaprine HCl 10 MG TABLET PO (20:38)
[2023-02-12] MEDS: Lidocaine 4 % Patch ADH..PATCH 1 PATCH TRANSDERMA (20:38)
[2023-02-12] MEDS: 0.9 % Sodium Chloride 1,000 ML 999 ML IV (20:47)
[2023-02-12 20:52] VITALS: BP 127/64; PULSE 56; RESP 16; TEMP 36.7; O2SAT 97
== END 2023-02-12 22:28 | disposition home or self-care (01) ==
PROVIDERS: Physician Assistant; Emergency Provider Emergency Medicine; PCP Internal Medicine
DX: M54.50 Low back pain, unspecified (principal); M79.605 Pain in left leg; M54.6 Pain in thoracic spine; R07.81 Pleurodynia; R10.2 Pelvic and perineal pain; Z79.899 Other long term (current) drug therapy; Z87.891 Personal history of nicotine dependence
CPT/HCPCS: 36415; 71101; 74176; 80048; 81003; 85025; 99283; 99284

== ENCOUNTER 2023-03-11 10:38 | Outpatient (AMB) | payer MEDICARE, MEDICAID, SELFPAY ==
[2023-03-11 10:45] VITALS: BP 110/78; PULSE 78; O2SAT 94; BMI 25.0
--- NOTE | 2023-03-11 10:45 | A.OFFPC_ITS ---
Vital Signs 03/11/23 10:45 Height 6 ft Weight 184 lb BMI 25.0 BP 110/78 Blood Pressure Location Lt brachial Position Sitting Pulse 78 Pulse Source Pulse Oximeter Pulse Oximetry (%) 94 Oxygen Delivery Method Room Air Intake Visit Reasons: [facility] [place]-02/12-L side back pain Sales Planning Coordinator Required: No Accompanied by: Self / Same As Patient Allergies No Known Allergies [No Known Allergies*] Allergy (Verified 03/11/23 11:23) Medication List - Last Reconciled 03/11/23 by Kofi Witt MD albuterol sulfate 90 mcg/actuation (Ventolin HFA) 2 puffs inhalation Q4-6H PRN albuterol sulfate 2.5 mg (0.5 mL) inhalation Q6H PRN cetirizine 10 mg PO DAILY PRN cyclobenzaprine 10 mg PO TID PRN fluticasone propionate 50 mcg/actuation 2 sprays intranasal DAILY PRN 30 days prednisone 40 mg (2 x 20 mg) PO DAILY 5 days ruxolitinib 1.5% (Opzelura) 1 appl topical BID Symbicort 160-4.5 mcg/actuation (budesonide-formoterol) 2 puffs PO BID 30 days NS Tobacco use date assessed: 03/11/23 Fall risk assessment: No Falls in past year Last assessed Fall Risk: 03/11/23 Dental Screening Dental Screen Date: 03/11/23 Did you have a dental visit in the last 12 months?: No Did you have a dental problem in the last 6 months where you did not have access to dental care?: No Was dental information given to patient?: No HPI [facility]12[facility] side back pain HPI Details Patient comes in today for his [facility] follow up visit States that he went to the ER a few weeks ago on 02/12/2023 for sudden onset of acute pain over his left flank area 3 days prior Notes that his flank pain persisted and he went to the ER when it started radiation down into his thigh and he did not experience any significant relief after taking some OTC Tylenol Labs done in the ER showed no explanation of his flank pain Abdominal and pelvic CT done also came out negative He was sent home with Rx for Cyclobenzaprine 10 mg TID PRN, which he states helped somewhat but he recalls taking some Ibuprofen 800 mg that he found at [facility] and states that the medication relieved his pain completely for a few hours Would like to see if he can get an Rx for Ibuprofen States that his left flank pain has since resolved and has not bothered him for about a week or so now but he would still like to have an Rx for Ibuprofen on hand States that he has also been using his Symbicort inhaler twice a day regularly but seems to be experiencing frequent asthma flare ups lately and only by taking some oral prednisone can he get his asthma controlled Is currently still experiencing some chest tightness and occasional pressure in his chest Notes also (+) on and off wheezing lately, with (+) FARIA when his asthma acts up He denies any fever or sore throat; denies any headaches or dizziness Denies any exertional chest pains No nausea/vomiting, no abdominal pain No change in bowel habits noted [facility] Medical History Depression Vitiligo Overweight (BMI 25.0-29.9) Allergic rhinitis Asthma Surgical History No pertinent past surgical history Family History Father No problems noted. Mother No problems noted. Social History Housing: Apartment Alcohol intake: never Patient Tobacco Use Status: Former Tobacco user e-Cigarette/Vaping Use: Never Used Second Hand Smoke Exposure: Yes service: No Current occupational status: retired and disabled Cognitive needs: No Hearing needs: No Vision needs: Yes (reading glasses) Questionnaire PHQ-9 Over the last 2 weeks, how often have you been bothered by any of the following problems? 1. Little interest or pleasure in doing things: not at all 2. Feeling down, depressed, or hopeless: not at all 3. Trouble falling or staying asleep, or sleeping too much: not at all 4. Feeling tired or having little energy: not at all 5. Poor appetite or overeating: not at all 6. Feeling bad about yourself - or that you are a failure or have let yourself or your family down: not at all 7. Trouble concentrating on things, such as reading the newspaper or watching television: not at all 8. Moving or speaking so slowly that other people could have noticed. Or the opposite - being so fidgety or restless that you have been moving around a lot more than usual: not at all 9. Thoughts that you would be better off or of hurting yourself in some way: not at all Total score: 0 Depression Screening Interpretation: Negative Depression Screening Done: Yes 36916 - PHQ-9 Billing: Yes Source: Developed by Drs. Bebo George, Lida Somers, Maxwell Andres and colleagues, with an educational darian from [employer]. Thrive Questionnaire Date Thrive assessed: 03/11/23 I am a: Patient What is your living situation today?: I have a steady place to live Within the past 12 months, did the food you bought not last and you didn't have the money to get more?: Never true Within the past 12 months, did you worry whether your food would run out before you got money to buy more?: Never true Do you have trouble paying for medicines?: No Do you have trouble getting transportation to medical appointments?: No Do you have trouble paying your heating and electricity bill?: No Do you have trouble taking care of your child, family member or friend?: No Do you have trouble with day-to-day activities such as bathing, preparing meals, shopping, managing finances, etc.?: No Are you currently unemployed and looking for a job?: No Are you interested in more education?: No Please select the resources that you would like help with: None Currently or been in a relationship where the following occur: no concerns reported AUDIT C Alcohol Use Questionnaire (AUDIT-C) 1. How often do you have a drink containing alcohol?: Never 3. How often do you have six or more drinks on one occasion?: Never Total Score: 0 Score Reviewed/Action Taken: Yes PINO-7 AMB Questionnaire PINO-7 Date PINO - 7 assessed: 03/11/23 Feeling nervous, anxious, or on edge: 0 = Not at all Not being able to stop or control worryin = Not at all Worrying too much about different things: 0 = Not at all Trouble relaxin = Not at all Being so restless that it is hard to sit still: 0 = Not at all Becoming easily annoyed or irritable: 0 = Not at all Feeling afraid as if something awful might happen: 0 = Not at all Total PINO-7 score (0-4 normal; 5-9 mild; 10-14 moderate; 15-21 severe): 0 Source: Developed by Drs. Bebo George, Lida Somers, Maxwell Andres and colleagues, with an educational darian from [employer]. Review of Systems Const Denies chills, Reports fatigue, Denies fever(s) and Denies headache(s) ENT Denies dysphagia, Denies dizziness, Denies otalgia, Denies headache(s), Denies neck pain, Denies odynophagia and Denies sore throat Card Denies chest pain, Denies palpitations and Reports dyspnea on exertion Resp Reports chest congestion (chest feels tight often lately), Reports cough (on and off, mostly non-productive), Denies pain with cough, Reports dyspnea on exertion and Reports wheezing (on and off) GI Denies abdominal pain, Denies constipation, Denies dysphagia, Denies heartburn, Denies diarrhea, Denies nausea, Denies odynophagia and Denies vomiting Denies dysuria, Denies nocturia and Denies urinary frequency Musc Denies back pain (his recent left flank pain appears resolved) and Denies neck pain Neuro Denies dizziness and Denies headache(s) Endo Reports fatigue and Denies palpitations Aller/Immun Reports wheezing (on and off) Physical exam (Primary Care) Vital Signs: Last Vital Signs Pulse 78 03/11/23 10:45 BP 110/78 03/11/23 10:45 Pulse Ox 94 03/11/23 10:45 Oxygen Delivery Method Room Air 03/11/23 10:45 BMI result Body Mass Index 25.0 Tobacco/Smoking Status: Tobacco use Status Tobacco use date assessed 03/11/23 03/11/23 10:48 Patient Tobacco Use Status Former Tobacco user 03/11/23 10:48 e-Cigarette/Vaping Use Never Used 03/11/23 10:48 PHQ-9: PHQ-9 Score PHQ-9: Total score 0 03/11/23 10:48 Depression Screening Interpretation: Negative Thrive Assessment: Date of Thrive Assessment Date Thrive assessed 03/11/23 03/11/23 10:48 Currently or been in a relationship where the following occur: no concerns reported Const General: no acute distress and alert HENMT Ears: TM's normal bilaterally and EAC's normal Throat: Yes posterior oropharynx normal and Yes tonsils normal (no TP congestion) Neck Neck: Yes no lymphadenopathy and Yes supple Thyroid: Thyroid normal Resp Auscultation: wheezes expiratory wheezes (scattered bilaterally) and diminished lung sounds bilateral Cardio Rate: regular rate Rhythm: regular rhythm Heart sounds: no murmurs GI Palpation (GI): Soft to palpation and nontender Auscultation: normal bowel sounds General: Yes no CVA tenderness Back/Spine/Pelvis Back: no CVA tenderness Thoracic/Lumbar Spine: thoracic and lumbar spine normal to inspection Skin Other: (+) scattered multiple hypopigmented patches on the face, especially over the perioral areas Extrem General: Yes no clubbing, cyanosis or edema Assessment and Plan Assessment & Plan (1) Poorly controlled persistent asthma: Code(s): J45.998 - Other asthma Plan: Patient has reportedly been experiencing frequent/recurrent asthma exacerbations lately requiring oral Prednisone therapy DESPITE using his ICS/LABA combination Rx (Symbicort 160-4.5 mcg 2 inhalations BID) regularly Continue Albuterol HFA 2 inahalation Q 6 hours PRN; will ADD Montelukast 10 mg Q PM Will also refer him to pulmonary for further evaluation and management (2) Left flank pain: Code(s): R10.9 - Unspecified abdominal pain Plan: Appears resolved currently - no tenderness reproduced or elicited on exam of the left flank area; was most likely due to an acute muscle strain as his recent abdominal and pelvic CT did not show any pathology to help explain his flank pain Per request, will provide patient with Rx for Ibuprofen 800 mg TID PRN but have advised him to take this ONLY as needed, especially with the possibility that he may currently have some issues going on with his kidneys, which we are going to look into further at present (3) Acute renal insufficiency: Code(s): N28.9 - Disorder of kidney and ureter, unspecified Plan: Patient is advised that his recent labs done at the ER earlier this month showed a significant change in his serum creatinine and GFR compared to his previous numbers, concerning for some progression of potential renal disease Will have him recheck this (CMP) CATHY for follow up If his repeat labs show consistent results, will need to consider referring him to nephrology for further evaluation and management (4) Allergic rhinitis: Code(s): J30.9 - Allergic rhinitis, unspecified Qualifiers: Allergic rhinitis trigger: unspecified Allergic rhinitis seasonality: unspecified Qualified Code(s): J30.9 - Allergic rhinitis, unspecified Plan: Continue Cetirizine 10 mg QD PRN and Fluticasone 50 mcg nasal spray QD PRN (5) Vitiligo: Code(s): L80 - Vitiligo Plan: Patient requested for trial of Opzelura earlier this year for his vitiligo but this was denied by insurance Follow up with dermatology as scheduled Plan To return as schedule in October 2023 for his annual physical examination unless his repeat labs show results consistent with a significant decline in his renal function - we will need to see him back earlier then for follow up of this issue Orders: Orders Microalbumin, Random (w Creat) Today N28.9 - Disorder of kidney and ureter, unspecified UA CC w/rflx Micro + Cult Today N28.9 - Disorder of kidney and ureter, unspecified Vitamin D 25-OH Total Today E55.9 - Vitamin D deficiency, unspecified, N28.9 - Disorder of kidney and ureter, unspecified Comprehensive Met. Panel Today N28.9 - Disorder of kidney and ureter, unspecified Referrals Pulmonary Medicine Referral J45.998 - Other asthma Medications: New montelukast 10 mg PO QPM 90 tabs 3RF 90 days J45.998 - Other asthma ibuprofen Take with food, and only as needed for pain 800 mg PO Q8H PRN 90 tabs 0RF pain Refilled prednisone 40 mg (2 x 20 mg) PO DAILY 10 tabs 0RF 5 days J45.901 - Unspecified asthma with (acute) exacerbation Coding Level of Care Code Est Pt Level 4 (94995) Diagnoses Poorly controlled persistent asthma J45.998 Left flank pain R10.9 Acute renal insufficiency N28.9 Allergic rhinitis, unspecified seasonality, unspecified trigger J30.9 Allergic rhinitis trigger: unspecified Allergic rhinitis seasonality: unspecified Vitiligo L80
== END 2023-03-11 11:31 | disposition home or self-care (01) ==
PROVIDERS: PCP Internal Medicine; Visit Provider Internal Medicine
DX: J45.998 Other asthma (principal); R10.9 Unspecified abdominal pain; N28.9 Disorder of kidney and ureter, unspecified; J30.9 Allergic rhinitis, unspecified; L80 Vitiligo
CPT/HCPCS: 99214

== ENCOUNTER 2023-03-17 11:49 | Outpatient (REF) | payer MEDICARE, MEDICAID, SELFPAY ==
[2023-03-17 13:01] LABS: Alanine Aminotransferase 9 U/L (0-40); Albumin Level 4.1 g/dL (3.5-5.0); Alkaline Phosphatase 80 U/L (39-117); Anion Gap 10 (12-20); Aspartate Amino Transferase 13 U/L (5-37); Bilirubin Total 0.5 mg/dL (0.0-1.0); Blood Urea Nitrogen 25 mg/dL (9-16); Calcium 9.1 mg/dL (8.4-10.2); Carbon Dioxide 26 mmol/L (22-29); Chloride 109 mmol/L (96-108); Estimated Glomerular Filt Rate > 60; Glucose Random 105 mg/dL (60-115); Potassium 3.9 mmol/L (3.3-5.1); Sodium 141 mmol/L (135-145); Total Protein 6.8 g/dL (6.5-8.0); Vitamin D 25-OH Total 26.5 ng/mL (>30)
[2023-03-17 13:42] LABS: Appearance Urine Clear; Color Urine Yellow; Glucose Urine UA Negative (Negative); Leukocyte Esterase Urine Negative (Negative); Nitrite Urine Negative (Negative); PH 6.5 (5.0-9.0); Specific Gravity - Urine 1.025 (1.005-1.025); Urine Blood Negative (Negative); Urine Ketones Negative (Negative); Urine Protein Negative (Neg-Trace)
[2023-03-17 14:24] LABS: Creatinine Urine 203.36 mg/dL; Microalbum/Creatinine Ratio Ur 5.4 ug/mg cr (<30)
== END 2023-03-17 11:50 | disposition home or self-care (01) ==
LOC: HO.LAB 11:49
PROVIDERS: PCP Internal Medicine; Visit Provider Internal Medicine
DX: N28.9 Disorder of kidney and ureter, unspecified (principal); E55.9 Vitamin D deficiency, unspecified
CPT/HCPCS: 36415; 80053; 81003; 82043; 82306; 82570

== ENCOUNTER 2023-04-08 14:33 | Outpatient (AMB) | payer MEDICARE, MEDICAID, SELFPAY ==
[2023-04-08 14:36] VITALS: BP 126/70; PULSE 76; O2SAT 93; BMI 24.4
--- NOTE | 2023-04-08 14:36 | A.OFFVIS_ITS ---
Intake Vital Signs 04/08/23 14:36 Height 6 ft Weight 180 lb BMI 24.4 BP 126/70 Blood Pressure Location Rt brachial Position Sitting Pulse 76 Pulse Source Doppler Pulse Oximetry (%) 93 Oxygen Delivery Method Room Air Intake Visit Reasons: asthma Allergies No Known Allergies [No Known Allergies*] Allergy (Verified 04/08/23 14:37) HPI asthma HPI Details 63-year-old gentleman, former approximat annel 20-25 pack-year smoker, quit 2017, with underlying history of asthma with multiple recent exacerbations and recent nasal surgery referred for evaluation of his asthma symptoms. Patient states that his ENT has just started him on Dupixent for underlying environmental allergies. He is using albuterol MDI, nebs, Singulair, and Symbicort, still with suboptimal control. He denies family history of lung disease. He does complain of multiple environmental allergies. [facility] Medical History Depression Vitiligo Overweight (BMI 25.0-29.9) Allergic rhinitis Asthma Surgical History No pertinent past surgical history Family History Father No problems noted. Mother No problems noted. Social History Housing: Apartment Alcohol intake: never Patient Tobacco Use Status: Former Tobacco user e-Cigarette/Vaping Use: Never Used Second Hand Smoke Exposure: Yes service: No Current occupational status: retired and disabled Cognitive needs: No Hearing needs: No Vision needs: Yes (reading glasses) Review of Systems Const Denies daytime sleepiness, Denies excessive sweating, Denies fatigue, Denies fever(s), Denies lethargy, Denies malaise, Denies night sweats, Denies snoring and Denies weight loss Eyes Denies blurry vision and Denies itchy eyes ENT Denies nasal congestion, Denies post nasal drip, Denies sinus pain, Denies sinus pressure and Denies other ( Thrush) Card Denies chest pain, Denies pedal edema, Denies dyspnea, Denies orthopnea and Denies paroxysmal nocturnal dyspnea Resp Denies cough, Denies hemoptysis, Denies excessive phlegm production, Denies dyspnea, Denies snoring and Denies wheezing GI Denies abdominal pain and Denies heartburn Musc Denies myalgias, Denies arthralgias and Denies joint swelling Skin/Breast Denies rash Neuro Denies memory loss and Denies seizure-like activity Psych Denies abnormal sleep pattern, Denies anxiety and Denies memory loss Endo Denies excessive sweating, Denies fatigue and Denies heat intolerance Cheo/Lymph Denies easy bruising Aller/Immun Denies itchy eyes, Denies seasonal rhinorrhea and Denies wheezing Physical Exam Vital Signs: Last Vital Signs Pulse 76 04/08/23 14:36 BP 126/70 04/08/23 14:36 Pulse Ox 93 04/08/23 14:36 Oxygen Delivery Method Room Air 04/08/23 14:36 BMI result Body Mass Index 24.4 Const General: no acute distress and alert Nutritional Appearance: not obese Orientation/consciousness: Other orientation findings ( oriented) HEENT Head: Yes atraumatic Eyes General: appearance normal, both eyes and all related structures Sclerae: sclerae normal EOM: EOMs intact bilaterally Neck Neck: Yes supple Lymphatic: no lymphadenopathy noted Resp Effort & Inspection: normal respiratory effort and no use of accessory muscles Auscultation: clear to auscultation bilaterally Cardio Rate: regular rate Rhythm: regular rhythm Heart sounds: no gallops, no murmurs and no rubs Skin General skin exam: other ( warm) Extrem General: No clubbing, No cyanosis and No edema Assessment & Plan Assessment & Plan (1) Asthma: Code(s): J45.909 - Unspecified asthma, uncomplicated Qualifiers: Asthma severity: moderate Asthma persistence: persistent Asthma complication type: uncomplicated Qualified Code(s): J45.40 - Moderate persistent asthma, uncomplicated Plan: With likely significant allergic component. Will obtain full PFT. Will continue on Symbicort, albuterol MDI/nebs. Patient has been started on Dupixent by his ENT. Expect to see some improvement. (2) Environmental allergies: Code(s): Z91.09 - Other allergy status, other than to drugs and biological substances Plan: Will obtain RAST and IgE level for further evaluation. Continue Singulair. Expect to see some improvement on Dupixent. Orders: Orders PFT pulmonary function test Today J45.40 - Moderate persistent asthma, uncomplicated Coding Level of Care Code New Pt Level 4 (33759) Diagnoses Moderate persistent asthma without complication J45.40 Asthma severity: moderate Asthma persistence: persistent Asthma complication type: uncomplicated Environmental allergies Z91.09
== END 2023-04-08 14:52 | disposition home or self-care (01) ==
PROVIDERS: PCP Internal Medicine; Referring Provider Internal Medicine; Visit Provider Internal Medicine Pulmonary Disease
DX: J45.40 Moderate persistent asthma, uncomplicated (principal); Z91.09 Other allergy status, other than to drugs and biological substances
CPT/HCPCS: 99204

== ENCOUNTER → 2023-04-08 14:33 | Outpatient (BNVA) | payer MEDICARE, MEDICAID, SELFPAY | PROVIDERS: PCP Internal Medicine; Referring Provider Internal Medicine; Visit Provider Internal Medicine Pulmonary Disease | DX: J45.41 Moderate persistent asthma with (acute) exacerbation (principal); Z91.09 Other allergy status, other than to drugs and biological substances; Z87.891 Personal history of nicotine dependence | CPT/HCPCS: 99202 ==

== ENCOUNTER 2023-05-19 10:48 | Outpatient (REF) | payer MEDICARE, MEDICAID, SELFPAY ==
--- NOTE | 2023-05-19 11:11 | PFT_ITS ---
Flows: FEV1: 45 % of predicted at 1.61 L FVC: 91% of predicted at 4.33L FEV1/FVC: 37% Bronchodilator response: Present Volumes: Patient unable to perform lung volume maneuvers. Diffusion capacity: Normal Impression: Severe obstructive ventilatory defect with bronchodilator response. Patient was unable to perform lung volume maneuvers. MTDD
[2023-05-19 11:17] VITALS: PULSE 80; RESP 20; O2SAT 95
== END 2023-05-19 10:49 | disposition home or self-care (01) ==
LOC: HO.RESP 10:48
PROVIDERS: PCP Internal Medicine; Visit Provider Internal Medicine Pulmonary Disease
DX: J45.40 Moderate persistent asthma, uncomplicated (principal)
CPT/HCPCS: 94640

== ENCOUNTER → 2023-05-19 11:11 | Outpatient (BNV) | payer MEDICARE, MEDICAID, SELFPAY | PROVIDERS: PCP Internal Medicine; Visit Provider Internal Medicine Pulmonary Disease | DX: J45.40 Moderate persistent asthma, uncomplicated (principal) | CPT/HCPCS: 94060; 94729 ==

== ENCOUNTER 2023-07-03 14:01 | Outpatient (AMB) | payer MEDICARE, MEDICAID, SELFPAY ==
--- NOTE | 2023-07-03 14:08 | A.OFFVIS_ITS ---
Intake Vital Signs 07/03/23 14:09 Height 6 ft Weight 189 lb BMI 25.6 BP 120/74 Blood Pressure Location Rt brachial Position Sitting Pulse 78 Pulse Source Doppler Pulse Oximetry (%) 96 Oxygen Delivery Method Room Air Intake Visit Reasons: asthma Allergies No Known Allergies [No Known Allergies*] Allergy (Verified 07/03/23 14:12) HPI asthma HPI Details 63-year-old gentleman, former approximat annel 20-25 pack-year smoker, quit 2017, with underlying history of asthma with multiple recent exacerbations and recent nasal surgery now followed for asthma and environmental allergies. Patient was supposed to be started on Dupixent by his ENT, however it has never happened and patient wants our office to order his Dupixent. He does complain of significant allergic rhinitis symptoms. He denies recent asthma exacerbations. He has been using Symbicort and albuterol MDI/nebs with suboptimal control of his symptoms. [facility] Medical History Depression Vitiligo Overweight (BMI 25.0-29.9) Allergic rhinitis Asthma Surgical History No pertinent past surgical history Family History Father No problems noted. Mother No problems noted. Social History Housing: Apartment Alcohol intake: never Patient Tobacco Use Status: Former Tobacco user e-Cigarette/Vaping Use: Never Used Second Hand Smoke Exposure: Yes service: No Current occupational status: retired and disabled Cognitive needs: No Hearing needs: No Vision needs: Yes (reading glasses) Review of Systems Const Denies daytime sleepiness, Denies excessive sweating, Denies fatigue, Denies fever(s), Denies lethargy, Denies malaise, Denies night sweats, Denies snoring and Denies weight loss Eyes Denies blurry vision and Denies itchy eyes ENT Reports nasal congestion, Reports post nasal drip, Denies sinus pain, Denies sinus pressure and Denies other ( Thrush) Card Denies chest pain, Denies pedal edema, Denies dyspnea, Denies orthopnea and Denies paroxysmal nocturnal dyspnea Resp Denies cough, Denies hemoptysis, Denies excessive phlegm production, Denies dyspnea, Denies snoring and Reports wheezing GI Denies abdominal pain and Denies heartburn Musc Denies myalgias, Denies arthralgias and Denies joint swelling Skin/Breast Denies rash Neuro Denies memory loss and Denies seizure-like activity Psych Denies abnormal sleep pattern, Denies anxiety and Denies memory loss Endo Denies excessive sweating, Denies fatigue and Denies heat intolerance Cheo/Lymph Denies easy bruising Aller/Immun Denies itchy eyes, Denies seasonal rhinorrhea and Reports wheezing Physical Exam Vital Signs: Last Vital Signs Pulse 78 07/03/23 14:09 BP 120/74 07/03/23 14:09 Pulse Ox 96 07/03/23 14:09 Oxygen Delivery Method Room Air 07/03/23 14:09 BMI result Body Mass Index 25.6 Const General: no acute distress and alert Nutritional Appearance: not obese Orientation/consciousness: Other orientation findings ( oriented) HEENT Head: Yes atraumatic Eyes General: appearance normal, both eyes and all related structures Sclerae: sclerae normal EOM: EOMs intact bilaterally Neck Neck: Yes supple Lymphatic: no lymphadenopathy noted Resp Effort & Inspection: normal respiratory effort and no use of accessory muscles Auscultation: clear to auscultation bilaterally Cardio Rate: regular rate Rhythm: regular rhythm Heart sounds: no gallops, no murmurs and no rubs Skin General skin exam: other ( warm) Extrem General: No clubbing, No cyanosis and No edema Assessment & Plan Assessment & Plan (1) Environmental allergies: Code(s): Z91.09 - Other allergy status, other than to drugs and biological substances Plan: Suboptimal control. Patient was never started on Dupixent by his ENT. Patient wants to proceed with Dupixent with our office. Dupixent request started. Continue montelukast and Flonase. Start nasal ipratropium. (2) Asthma: Code(s): J45.909 - Unspecified asthma, uncomplicated Qualifiers: Asthma severity: moderate Asthma persistence: persistent Asthma complication type: uncomplicated Qualified Code(s): J45.40 - Moderate persistent asthma, uncomplicated Plan: Underlying severe persistent allergic asthma. Pulmonary function test reviewed. Suboptimal control on Symbicort and albuterol MDI. Expect to improve on Dupixent. Medications: New prednisone Take 4 tabs daily for 4 days, then go down by 1 tab every 4 days 10 mg PO DIRECTED 40 tabs 0RF ipratropium bromide administer into each nostril 2 sprays intranasal TID 30 days 15 mL 3RF Discontinued prednisone Discontinued Reason: Doctor's Order 4 tablets x 2 days, then 3 tablets x 2 days, then 2 tablets x 2 days, then 1 tablet x 2 days 8 days 20 tabs 0RF J45.901 - Unspecified asthma with (acute) exacerbation, M25.50 - Pain in unspecified joint prednisone Discontinued Reason: Doctor's Order 40 mg (2 x 20 mg) PO DAILY 5 days 10 tabs 0RF J45.901 - Unspecified asthma with (acute) exacerbation Coding Level of Care Code Est Pt Level 4 (45704) Diagnoses Environmental allergies Z91.09 Moderate persistent asthma without complication J45.40 Asthma severity: moderate Asthma persistence: persistent Asthma complication type: uncomplicated
[2023-07-03 14:09] VITALS: BP 120/74; PULSE 78; O2SAT 96; BMI 25.6
== END 2023-07-03 14:48 | disposition home or self-care (01) ==
PROVIDERS: PCP Internal Medicine; Visit Provider Internal Medicine Pulmonary Disease
DX: Z91.09 Other allergy status, other than to drugs and biological substances (principal); J45.40 Moderate persistent asthma, uncomplicated
CPT/HCPCS: 99214

== ENCOUNTER → 2023-07-03 14:01 | Outpatient (BNVA) | payer MEDICARE, MEDICAID, SELFPAY | PROVIDERS: PCP Internal Medicine; Visit Provider Internal Medicine Pulmonary Disease | DX: J45.40 Moderate persistent asthma, uncomplicated (principal); Z91.09 Other allergy status, other than to drugs and biological substances | CPT/HCPCS: 99212 ==

== ENCOUNTER 2023-07-09 16:40 | Emergency (ER) | payer OTHER, MEDICARE, MEDICAID, SELFPAY ==
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
[2023-07-09 16:50] VITALS: BP 114/64; BP 122/74; PULSE 68; PULSE 73; RESP 16; TEMP 36.4; O2SAT 96; O2SAT 98; BMI 24.4
== END 2023-07-09 19:19 | disposition home or self-care (01) ==
PROVIDERS: Emergency Provider Emergency Medicine Emergency Medical Services; PCP Internal Medicine
DX: Z04.1 Encounter for examination and observation following transport accident (principal); R51.9 Headache, unspecified; M25.561 Pain in right knee
CPT/HCPCS: 70450; 71250; 72125; 73562; 99282; 99284

== ENCOUNTER 2023-07-15 13:48 | Outpatient (AMB) | payer MEDICARE, MEDICAID, SELFPAY ==
[2023-07-15 14:39] VITALS: BP 110/70; PULSE 75; O2SAT 94
--- NOTE | 2023-07-15 14:39 | MHC.OFFVIS ---
Intake Vital Signs 07/15/23 14:39 Weight 179 lb 10.828 oz BP 110/70 Blood Pressure Location Rt brachial Position Sitting Pulse 75 Pulse Source Pulse Oximeter Pulse Oximetry (%) 94 Oxygen Delivery Method Room Air Intake Visit Reasons: Dupixent Teaching Allergies No Known Allergies [No Known Allergies*] Allergy (Verified 07/15/23 14:40) Medication List - Last Reconciled 07/15/23 by Melani Ortega LPN albuterol sulfate 90 mcg/actuation (Ventolin HFA) 2 puffs inhalation Q4-6H PRN albuterol sulfate 2.5 mg (0.5 mL) inhalation Q6H PRN cetirizine 10 mg PO DAILY PRN cyclobenzaprine 5 mg PO TID PRN cyclobenzaprine 10 mg PO TID PRN dupilumab (Dupixent) 300 mg (2 mL) subcut Q2W 28 days fluticasone furoate-vilanterol 200-25 mcg/dose (Breo Ellipta) 1 inh inhalation DAILY 30 days fluticasone propionate 50 mcg/actuation 2 sprays intranasal DAILY PRN 30 days ibuprofen 800 mg PO Q8H PRN ipratropium bromide 2 sprays intranasal TID 30 days lidocaine 5% 1 patch topical DAILY montelukast 10 mg PO QPM 90 days prednisone 10 mg PO DIRECTED ruxolitinib 1.5% (Opzelura) 1 appl topical BID HPI Dupixent Teaching HPI Details Markus is here for a Dupixent teach he was educated on hand washing, injection preparation, administration, and disposal.?Markus was able to return demonstrate proper technique for hand washing, injection preparation, administration and disposal of needle and states he has no questions at this time. Medication Dupixent 300mg/2mL pre-filled pen (patient?s own meds) Loading dose of 600mg given by the patient in 2 SQ injections; injection #1 R abdomen;? injection #2 L abdomen Lot# [id number] expires 05/11/2025. Patient aware his next injection is in 15 days. Nurse visit only.? [facility] Medical History Depression Vitiligo Overweight (BMI 25.0-29.9) Allergic rhinitis Asthma Surgical History No pertinent past surgical history Family History Father No problems noted. Mother No problems noted. Social History Housing: Apartment Alcohol intake: never Patient Tobacco Use Status: Former Tobacco user e-Cigarette/Vaping Use: Never Used Second Hand Smoke Exposure: Yes service: No Current occupational status: retired and disabled Cognitive needs: No Hearing needs: No Vision needs: Yes (reading glasses) Physical Exam Vital Signs: Last Vital Signs Pulse 75 07/15/23 14:39 BP 110/70 07/15/23 14:39 Pulse Ox 94 07/15/23 14:39 Oxygen Delivery Method Room Air 07/15/23 14:39 Assessment & Plan Assessment & Plan (1) Asthma: Code(s): J45.909 - Unspecified asthma, uncomplicated Qualifiers: Asthma complication type: uncomplicated Asthma persistence: persistent Asthma severity: moderate Qualified Code(s): J45.40 - Moderate persistent asthma, uncomplicated Plan: Dupixent teaching Coding Level of Care Code Established Pt Est Pt Level 1 (89822) Patient Type Established Diagnoses Moderate persistent asthma without complication J45.40 Asthma complication type: uncomplicated Asthma persistence: persistent Asthma severity: moderate Comment NURSES VISIT ONLY
== END 2023-07-15 14:06 | disposition home or self-care (01) ==
PROVIDERS: PCP Internal Medicine; Visit Provider Internal Medicine Pulmonary Disease
DX: J45.40 Moderate persistent asthma, uncomplicated (principal)

== ENCOUNTER → 2023-07-15 13:48 | Outpatient (BNVA) | payer MEDICARE, MEDICAID, SELFPAY | PROVIDERS: PCP Internal Medicine; Visit Provider Internal Medicine Pulmonary Disease | DX: J45.40 Moderate persistent asthma, uncomplicated (principal) | CPT/HCPCS: 99211 ==

== ENCOUNTER 2023-11-06 14:09 | Outpatient (AMB) | payer MEDICARE, MEDICAID, SELFPAY ==
[2023-11-06 14:36] VITALS: BP 100/60; PULSE 71; O2SAT 95; BMI 26.3
--- NOTE | 2023-11-06 14:36 | MHC.OFFVIS ---
Vital Signs 11/06/23 14:36 Height 6 ft Weight 194 lb 0.108 oz BMI 26.3 BP 100/60 Blood Pressure Location Rt brachial Position Sitting Pulse 71 Pulse Source Doppler Pulse Oximetry (%) 95 Oxygen Delivery Method Room Air Intake Visit Reasons: asthma Allergies No Known Allergies [No Known Allergies*] Allergy (Verified 07/15/23 14:40) HPI HPI asthma: Details: 63-year-old gentleman, former approximately 20-25 pack-year smoker, quit 2017, with underlying history of asthma with multiple recent exacerbations and recent nasal surgery now followed for asthma and environmental allergies. After the last office visit patient was started on Dupixent with significantly improved symptom control. He no longer requires using Symbicort. He denies any recent exacerbations. [facility] Medical History Depression Vitiligo Overweight (BMI 25.0-29.9) Allergic rhinitis Asthma Surgical History No pertinent past surgical history Family History Father No problems noted. Mother No problems noted. Social History Housing: Apartment Alcohol intake: never Patient Tobacco Use Status: Former Tobacco user e-Cigarette/Vaping Use: Never Used Second Hand Smoke Exposure: Yes service: No Current occupational status: retired and disabled Cognitive needs: No Hearing needs: No Vision needs: Yes (reading glasses) Review of Systems Const Denies daytime sleepiness, Denies excessive sweating, Denies fatigue, Denies fever(s), Denies lethargy, Denies malaise, Denies night sweats, Denies snoring and Denies weight loss Eyes Denies blurry vision and Denies itchy eyes ENT Denies nasal congestion, Denies post nasal drip, Denies sinus pain, Denies sinus pressure and Denies other ( Thrush) Card Denies chest pain, Denies pedal edema, Denies dyspnea, Denies orthopnea and Denies paroxysmal nocturnal dyspnea Resp Denies cough, Denies hemoptysis, Denies excessive phlegm production, Denies dyspnea, Denies snoring and Denies wheezing GI Denies abdominal pain and Denies heartburn Musc Denies myalgias, Denies arthralgias and Denies joint swelling Skin/Breast Denies rash Neuro Denies memory loss and Denies seizure-like activity Psych Denies abnormal sleep pattern, Denies anxiety and Denies memory loss Endo Denies excessive sweating, Denies fatigue and Denies heat intolerance Cheo/Lymph Denies easy bruising Aller/Immun Denies itchy eyes, Denies seasonal rhinorrhea and Denies wheezing Physical Exam Vital Signs: Last Vital Signs Pulse 71 11/06/23 14:36 BP 100/60 11/06/23 14:36 Pulse Ox 95 11/06/23 14:36 Oxygen Delivery Method Room Air 11/06/23 14:36 BMI result Body Mass Index 26.3 Const General: no acute distress and alert Nutritional Appearance: not obese Orientation/consciousness: Other orientation findings ( oriented) HEENT Head: Yes atraumatic Eyes General: appearance normal, both eyes and all related structures Sclerae: sclerae normal EOM: EOMs intact bilaterally Neck Neck: Yes supple Lymphatic: no lymphadenopathy noted Resp Effort & Inspection: normal respiratory effort and no use of accessory muscles Auscultation: clear to auscultation bilaterally Cardio Rate: regular rate Rhythm: regular rhythm Heart sounds: no gallops, no murmurs and no rubs Skin General skin exam: other ( warm) Extrem General: No clubbing, No cyanosis and No edema Assessment & Plan Assessment & Plan (1) Asthma: Code(s): J45.909 - Unspecified asthma, uncomplicated Category: Medical Qualifiers: Asthma severity: moderate Asthma persistence: persistent Asthma complication type: uncomplicated Qualified Code(s): J45.40 - Moderate persistent asthma, uncomplicated Plan: Well controlled on Dupixent and albuterol MDI/nebs. Continue current regimen. (2) Environmental allergies: Code(s): Z91.09 - Other allergy status, other than to drugs and biological substances Category: Medical Plan: Excellent control on Dupixent. Continue current regimen. Coding Level of Care Code Est Pt Level 4 (40751) Diagnoses Moderate persistent asthma without complication J45.40 Asthma severity: moderate Asthma persistence: persistent Asthma complication type: uncomplicated Environmental allergies Z91.09
== END 2023-11-06 15:11 | disposition home or self-care (01) ==
PROVIDERS: PCP Internal Medicine; Visit Provider Internal Medicine Pulmonary Disease
DX: J45.40 Moderate persistent asthma, uncomplicated (principal); Z91.09 Other allergy status, other than to drugs and biological substances
CPT/HCPCS: 99214

== ENCOUNTER → 2023-11-06 14:09 | Outpatient (BNVA) | payer MEDICARE, MEDICAID, SELFPAY | PROVIDERS: PCP Internal Medicine; Visit Provider Internal Medicine Pulmonary Disease | DX: J45.40 Moderate persistent asthma, uncomplicated (principal); Z91.09 Other allergy status, other than to drugs and biological substances | CPT/HCPCS: 99212 ==

== ENCOUNTER 2023-11-12 13:34 | Outpatient (AMB) | payer MEDICARE, MEDICAID, SELFPAY ==
[2023-11-12 13:36] VITALS: BP 112/68; PULSE 79; O2SAT 97; BMI 26.4
--- NOTE | 2023-11-12 13:36 | A.OFFPC_ITS ---
Vital Signs 11/12/23 13:36 Height 6 ft Weight 195 lb 0.4 oz BMI 26.4 BP 112/68 Blood Pressure Location Lt brachial Position Sitting Pulse 79 Pulse Source Pulse Oximeter Pulse Oximetry (%) 97 Oxygen Delivery Method Room Air Intake Visit Reasons: follow up Intake Note: Patient is here today for his follow up visit [employer] Required: No Allergies No Known Allergies [No Known Allergies*] Allergy (Verified 11/12/23 14:39) Medication List - Last Reconciled 11/12/23 by Kofi Witt MD albuterol sulfate 90 mcg/actuation (Ventolin HFA) 2 puffs inhalation Q4-6H PRN albuterol sulfate 2.5 mg (0.5 mL) inhalation Q6H PRN cetirizine 10 mg PO DAILY PRN cyclobenzaprine 5 mg PO TID PRN dupilumab (Dupixent) 300 mg (2 mL) subcut Q2W 28 days fluticasone propionate 50 mcg/actuation 2 sprays intranasal DAILY PRN 30 days ipratropium bromide 2 sprays intranasal TID 30 days lidocaine 5% 1 patch topical DAILY montelukast 10 mg PO QPM 90 days Tobacco use date assessed: 11/12/23 Fall risk assessment: No Falls in past year Last assessed Fall Risk: 11/12/23 Dental Screening Dental Screen Date: 11/12/23 Did you have a dental visit in the last 12 months?: No Did you have a dental problem in the last 6 months where you did not have access to dental care?: No HPI follow up HPI Details Patient comes in today for his follow-up visit - was last seen in February 2023 States that he currently feels okay He denies any headaches or dizziness Denies any chest pains, no shortness of breath - states that his asthma has been doing very well since he was started on Dupixent injections by Pulmonary States that he also used to be on Symbicort inhaler but for unknown reasons, has not been able to get this refilled and he would like to know if we can send in a prescription for his Symbicort to his local pharmacy as he would like to start back on that to keep his asthma under control No nausea/vomiting, no abdominal pain No change in bowel habits noted Needs his Cyclobenzaprine Rx refilled [facility] Medical History Depression Vitiligo Overweight (BMI 25.0-29.9) Allergic rhinitis Asthma Surgical History No pertinent past surgical history Family History Father No problems noted. Mother No problems noted. Social History Housing: Apartment Alcohol intake: never Patient Tobacco Use Status: Former Tobacco user e-Cigarette/Vaping Use: Never Used Second Hand Smoke Exposure: Yes service: No Current occupational status: retired and disabled Cognitive needs: No Hearing needs: No Vision needs: Yes (reading glasses) Questionnaire PHQ-9 Over the last 2 weeks, how often have you been bothered by any of the following problems? 1. Little interest or pleasure in doing things: not at all 2. Feeling down, depressed, or hopeless: several days 3. Trouble falling or staying asleep, or sleeping too much: not at all 4. Feeling tired or having little energy: not at all 5. Poor appetite or overeating: not at all 6. Feeling bad about yourself - or that you are a failure or have let yourself or your family down: not at all 7. Trouble concentrating on things, such as reading the newspaper or watching television: not at all 8. Moving or speaking so slowly that other people could have noticed. Or the opposite - being so fidgety or restless that you have been moving around a lot more than usual: not at all 9. Thoughts that you would be better off or of hurting yourself in some way: not at all Total score: 1 Depression Screening Interpretation: Negative Depression Screening Done: Yes 50502 - PHQ-9 Billing: Yes Source: Developed by Drs. Bebo George, Lida Somers, Maxwell Andres and colleagues, with an educational darian from [employer]. Thrive Questionnaire Date Thrive assessed: 11/12/23 I am a: Patient What is your living situation today?: I have a steady place to live Within the past 12 months, did the food you bought not last and you didn't have the money to get more?: Never true Within the past 12 months, did you worry whether your food would run out before you got money to buy more?: Never true Do you have trouble paying for medicines?: No Do you have trouble getting transportation to medical appointments?: No Do you have trouble paying your heating and electricity bill?: No Do you have trouble taking care of your child, family member or friend?: No Do you have trouble with day-to-day activities such as bathing, preparing meals, shopping, managing finances, etc.?: No Are you currently unemployed and looking for a job?: No Are you interested in more education?: No Please select the resources that you would like help with: None Currently or been in a relationship where the following occur: No concerns reported THRIVE Score: 0 AUDIT C Alcohol Use Questionnaire (AUDIT-C) 1. How often do you have a drink containing alcohol?: Never 3. How often do you have six or more drinks on one occasion?: Never Total Score: 0 Score Reviewed/Action Taken: Yes PINO-7 AMB Questionnaire PINO-7 Date PINO - 7 assessed: 11/12/23 Feeling nervous, anxious, or on edge: 1 = Several days Not being able to stop or control worryin = Several days Worrying too much about different things: 1 = Several days Trouble relaxin = Several days Being so restless that it is hard to sit still: 1 = Several days Becoming easily annoyed or irritable: 0 = Not at all Feeling afraid as if something awful might happen: 0 = Not at all Total PINO-7 score (0-4 normal; 5-9 mild; 10-14 moderate; 15-21 severe): 5 Source: Developed by Drs. Bebo George, Lida Somers, Maxwell Andres and colleagues, with an educational darian from [employer]. Review of Systems Const Denies chills, Denies fatigue, Denies fever(s) and Denies headache(s) ENT Denies dysphagia, Denies dizziness, Denies otalgia, Denies headache(s), Denies neck pain, Denies odynophagia and Denies sore throat Card Denies chest pain, Denies palpitations and Denies dyspnea Resp Denies chest congestion, Denies cough, Denies pain with cough, Denies dyspnea and Denies wheezing GI Denies abdominal pain, Denies constipation, Denies dysphagia, Denies heartburn, Denies diarrhea, Denies nausea, Denies odynophagia and Denies vomiting Denies dysuria, Denies nocturia and Denies urinary frequency Musc Denies back pain and Denies neck pain Skin/Breast Denies rash Neuro Denies dizziness and Denies headache(s) Endo Denies fatigue and Denies palpitations Aller/Immun Denies wheezing Physical exam (Primary Care) Vital Signs: Last Vital Signs Pulse 79 11/12/23 13:36 BP 112/68 11/12/23 13:36 Pulse Ox 97 11/12/23 13:36 Oxygen Delivery Method Room Air 11/12/23 13:36 BMI result Body Mass Index 26.4 Tobacco/Smoking Status: Tobacco use Status Tobacco use date assessed 11/12/23 11/12/23 13:38 Patient Tobacco Use Status Former Tobacco user 11/12/23 13:38 e-Cigarette/Vaping Use Never Used 11/12/23 13:38 PHQ-9: PHQ-9 Score PHQ-9: Total score 1 11/12/23 14:42 Depression Screening Interpretation: Negative Thrive Assessment: Date of Thrive Assessment Date Thrive assessed 03/11/23 11/12/23 13:38 Currently or been in a relationship where the following occur: No concerns reported Const General: no acute distress and alert HENMT Ears: TM's normal bilaterally and EAC's normal Throat: Yes posterior oropharynx normal and Yes tonsils normal (no TP congestion) Neck Neck: Yes no lymphadenopathy and Yes supple Thyroid: Thyroid normal Resp Auscultation: clear to auscultation bilaterally, no rales and no wheezes Cardio Rate: regular rate Rhythm: regular rhythm Heart sounds: no murmurs GI Palpation (GI): Soft to palpation and nontender Auscultation: normal bowel sounds General: Yes no CVA tenderness Back/Spine/Pelvis Back: no CVA tenderness Thoracic/Lumbar Spine: thoracic and lumbar spine normal to inspection Skin Other: (+) scattered multiple hypopigmented patches on the face, especially over the perioral areas Extrem General: Yes no clubbing, cyanosis or edema Assessment and Plan Assessment & Plan (1) Asthma: Code(s): J45.909 - Unspecified asthma, uncomplicated Qualifiers: Asthma severity: moderate Asthma persistence: persistent Asthma complication type: uncomplicated Qualified Code(s): J45.40 - Moderate persistent asthma, uncomplicated Plan: Patient states that his asthma has been much better controlled since he was started on Dupixent injections by pulmonary a few months ago - is currently on Dupixent 300 mg SQ Q 2 weeks Continue Albuterol HFA 1 to 2 inhalations Q 6 hours PRN and Montelukast 10 mg QD Instead of trying to get him back on his Symbicort, which is likely not covered by his insurance, will start him on Trelegy Ellipta 100-62.5-25 mcg 1 inhalation QD He also uses Albuterol solution with his updraft machine QID PRN Follow up with pulmonary as scheduled (2) Acute renal insufficiency: Code(s): N28.9 - Disorder of kidney and ureter, unspecified Plan: Resolved - patient's labs done at the ER in February 2023 showed (+) elevated serum creatinine and low GFR when compared to his previous numbers Repeat labs a few weeks later showed (+) resolution and both his serum creatinine and GFR were back to his normal baseline then (3) Allergic rhinitis: Code(s): J30.9 - Allergic rhinitis, unspecified Qualifiers: Allergic rhinitis seasonality: unspecified Allergic rhinitis trigger: unspecified Qualified Code(s): J30.9 - Allergic rhinitis, unspecified Plan: Continue Cetirizine 10 mg QD PRN and Fluticasone 50 mcg nasal spray QD PRN (4) Vitiligo: Code(s): L80 - Vitiligo Plan: Patient requested for trial of Opzelura earlier this year for his vitiligo but this was denied by insurance Follow up with dermatology as scheduled (5) Overweight (BMI 25.0-29.9): Code(s): E66.3 - Overweight Plan: Reinforced diet/exercise as tolerated/lose weight Plan To return in 3 to 4 months for his annual physical examination Orders: Orders Comprehensive Robards. Panel Fast 4 Months E78.00 - Pure hypercholesterolemia, unspecified, Z00.00 - Encounter for general adult medical examination without abnormal findings TSH reflex Free T4 4 Months E78.00 - Pure hypercholesterolemia, unspecified, Z00.00 - Encounter for general adult medical examination without abnormal findings Vitamin D 25-OH Total 4 Months E55.9 - Vitamin D deficiency, unspecified, Z00.00 - Encounter for general adult medical examination without abnormal findings Complete Blood Count Auto Diff 4 Months D64.9 - Anemia, unspecified, Z00.00 - Encounter for general adult medical examination without abnormal findings Lipid Panel 4 Months E78.00 - Pure hypercholesterolemia, unspecified, Z00.00 - Encounter for general adult medical examination without abnormal findings UA CC w/rflx Micro + Cult 4 Months R30.0 - Dysuria, Z00.00 - Encounter for general adult medical examination without abnormal findings Medications: New [id number] 100-62.5-25 mcg (Trelegy Ellipta) 1 inh inhalation DAILY 60 ea 3RF Refilled cyclobenzaprine 5 mg PO TID PRN 10 tabs 0RF muscle spasm Coding Level of Care Code Est Pt Level 4 (76018) Diagnoses Moderate persistent asthma without complication J45.40 Asthma severity: moderate Asthma persistence: persistent Asthma complication type: uncomplicated Acute renal insufficiency N28.9 Allergic rhinitis, unspecified seasonality, unspecified trigger J30.9 Allergic rhinitis seasonality: unspecified Allergic rhinitis trigger: unspecified Vitiligo L80 Overweight (BMI 25.0-29.9) E66.3
== END 2023-11-12 14:49 | disposition home or self-care (01) ==
PROVIDERS: PCP Internal Medicine; Visit Provider Internal Medicine
DX: J45.40 Moderate persistent asthma, uncomplicated (principal); N28.9 Disorder of kidney and ureter, unspecified; J30.9 Allergic rhinitis, unspecified; L80 Vitiligo; E66.3 Overweight
CPT/HCPCS: 99214

== ENCOUNTER 2024-03-15 14:26 | Outpatient (AMB) | payer MEDICARE, MEDICAID, SELFPAY ==
--- NOTE | 2024-03-15 14:42 | MHC.PC.OV ---
Vital Signs 03/15/24 14:43 Height 6 ft Weight 194 lb 4 oz BMI 26.3 BP 110/80 Blood Pressure Location Lt brachial Position Sitting Pulse 94 Pulse Source Pulse Oximeter Pulse Oximetry (%) 93 Oxygen Delivery Method Room Air Intake Visit Reasons: Annual Exam Post Secondary Professional Required: No Accompanied by: Self / Same As Patient Allergies No Known Allergies [No Known Allergies*] Allergy (Verified 03/15/24 15:18) Medication List - Last Reconciled 03/15/24 by Kofi Witt MD albuterol sulfate 90 mcg/actuation (Ventolin HFA) 2 puffs inhalation Q4-6H PRN albuterol sulfate 2.5 mg (0.5 mL) inhalation Q6H PRN cetirizine 10 mg PO DAILY PRN cyclobenzaprine 5 mg PO TID PRN dupilumab (Dupixent) 300 mg (2 mL) subcut Q2W 28 days fluticasone propionate 50 mcg/actuation 2 sprays intranasal DAILY PRN 30 days [id number]-[id number]-hfvfrfzt 100-62.5-25 mcg (Trelegy Ellipta) 1 inh inhalation DAILY ipratropium bromide 2 sprays intranasal TID 30 days lidocaine 5% 1 patch topical DAILY loratadine 10 mg PO DAILY PRN 90 days montelukast 10 mg PO QPM 90 days Tobacco use date assessed: 03/15/24 Fall risk assessment: No Falls in past year Last assessed Fall Risk: 03/15/24 Dental Screening Dental Screen Date: 03/15/24 Did you have a dental visit in the last 12 months?: No Did you have a dental problem in the last 6 months where you did not have access to dental care?: No Was dental information given to patient?: No HPI Annual Exam HPI Details Patient comes in today for his annual physical examination States that he feels okay Denies any headaches or dizziness Denies any chest pains, no SOB - states that his asthma has been much better controlled since he started getting his Dupixent injections No nausea/vomiting, no abdominal pain No change in bowel habits noted He denies any acute urinary symptoms Adds that he has been experiencing on and off bouts of anxiety and he sometimes has trouble sleeping at night as a result States that he has seen/talked to his therapist at [facility] in the past and plans to reach out to them again to get restarted with his sessions to help him with his anxiety issues He has never had a screening colonoscopy done although he did have Cologuard testing done last year (2022), which came out negative He was not able to get his follow up labs done prior to his appointment today - states that he will go and get them done tomorrow morning States that he already got his flu shot at his local pharmacy a few days ago [facility] Medical History (Updated 03/15/24 @ 15:44 by Kofi Witt MD) Vitamin D deficiency Anxiety Depression Vitiligo Overweight (BMI 25.0-29.9) Allergic rhinitis Asthma Surgical History No pertinent past surgical history Family History Father No problems noted. Mother No problems noted. Social History Housing: Apartment Alcohol intake: never Patient Tobacco Use Status: Former Tobacco user e-Cigarette/Vaping Use: Never Used Second Hand Smoke Exposure: Yes service: No Current occupational status: retired and disabled Cognitive needs: No Hearing needs: No Vision needs: Yes (reading glasses) Questionnaire PHQ-9 Over the last 2 weeks, how often have you been bothered by any of the following problems? 1. Little interest or pleasure in doing things: more than half the days 2. Feeling down, depressed, or hopeless: more than half the days 3. Trouble falling or staying asleep, or sleeping too much: several days 4. Feeling tired or having little energy: not at all 5. Poor appetite or overeating: nearly every day 6. Feeling bad about yourself - or that you are a failure or have let yourself or your family down: several days 7. Trouble concentrating on things, such as reading the newspaper or watching television: not at all 8. Moving or speaking so slowly that other people could have noticed. Or the opposite - being so fidgety or restless that you have been moving around a lot more than usual: not at all 9. Thoughts that you would be better off or of hurting yourself in some way: not at all Total score: 9 Depression Screening Interpretation: Positive Depression Screening Follow-up: Existing condition and Community Mental Health Worker F/U Depression Screening Done: Yes [id number] - PHQ-9 Billing: Yes Source: Developed by Drs. Bebo George, Lida Somers, Maxwell Andres and colleagues, with an educational darian from [employer]. Thrive Questionnaire Date Thrive assessed: 03/15/24 I am a: Patient What is your living situation today?: I have a steady place to live Within the past 12 months, did the food you bought not last and you didn't have the money to get more?: Often true Within the past 12 months, did you worry whether your food would run out before you got money to buy more?: Often true Do you have trouble paying for medicines?: No Do you have trouble getting transportation to medical appointments?: No Do you have trouble paying your heating and electricity bill?: No Do you have trouble taking care of your child, family member or friend?: No Do you have trouble with day-to-day activities such as bathing, preparing meals, shopping, managing finances, etc.?: No Are you currently unemployed and looking for a job?: No Are you interested in more education?: No Please select the resources that you would like help with: Housing/Senior Living Currently or been in a relationship where the following occur: I choose not to answer THRIVE Score: 2 AUDIT C Alcohol Use Questionnaire (AUDIT-C) 1. How often do you have a drink containing alcohol?: Never Total Score: 0 Score Reviewed/Action Taken: Yes PINO-7 AMB Questionnaire PINO-7 Date PINO - 7 assessed: 03/15/24 Feeling nervous, anxious, or on edge: 0 = Not at all Not being able to stop or control worryin = Not at all Worrying too much about different things: 0 = Not at all Trouble relaxin = Several days Being so restless that it is hard to sit still: 1 = Several days Becoming easily annoyed or irritable: 1 = Several days Feeling afraid as if something awful might happen: 0 = Not at all Total PINO-7 score (0-4 normal; 5-9 mild; 10-14 moderate; 15-21 severe): 3 Source: Developed by Lida Negrete. Yonis, Maxwell Andres and colleagues, with an educational darian from [employer]. Review of Systems Const Denies chills, Reports difficulty sleeping (at times - mostly due to anxiety), Denies fatigue, Denies fever(s), Denies headache(s), Denies malaise and Denies weakness Eyes Denies blurry vision, Denies change in vision, Denies irritation and Denies itchy eyes ENT Denies dysphagia, Denies dizziness, Denies otalgia, Denies headache(s), Denies nasal congestion, Denies neck pain, Denies odynophagia and Denies sore throat Card Denies chest pain, Denies rapid heart rate, Denies irregular heart rhythm, Denies palpitations and Denies dyspnea Resp Denies chest congestion, Denies cough, Denies dyspnea and Denies wheezing GI Denies abdominal pain, Denies bloating, Denies constipation, Denies dysphagia, Denies heartburn, Denies diarrhea, Denies nausea, Denies odynophagia and Denies vomiting Denies hematuria, Denies difficulty urinating, Denies dysuria, Denies urinary frequency and Denies urinary urgency Musc Denies back pain, Denies arthralgias, Denies joint swelling, Denies muscle weakness and Denies neck pain Skin/Breast Denies change in pigmentation, Denies lesions, Denies rash and Denies unusual bruising Neuro Denies dizziness, Denies headache(s), Denies paresthesias and Denies weakness Psych Reports anxiety and Reports depression Endo Denies fatigue and Denies palpitations Aller/Immun Denies itchy eyes and Denies wheezing Physical exam (Primary Care) Vital Signs: Last Vital Signs Pulse 94 03/15/24 14:43 BP 110/80 03/15/24 14:43 Pulse Ox 93 03/15/24 14:43 Oxygen Delivery Method Room Air 03/15/24 14:43 BMI result Body Mass Index 26.3 Tobacco/Smoking Status: Tobacco use Status Tobacco use date assessed 03/15/24 03/15/24 14:48 Patient Tobacco Use Status Former Tobacco user 03/15/24 14:48 e-Cigarette/Vaping Use Never Used 03/15/24 14:48 PHQ-9: PHQ-9 Score PHQ-9: Total score 9 03/15/24 14:48 Depression Screening Interpretation: Positive Depression Screening Follow-up: Existing condition and Community Mental Health Worker F/U Thrive Assessment: Date of Thrive Assessment Date Thrive assessed 03/15/24 03/15/24 14:48 Currently or been in a relationship where the following occur: I choose not to answer Const General: no acute distress, alert and awake Orientation/consciousness: patient oriented x3 HENMT Head: Yes normocephalic and Yes atraumatic Ears: external ears normal, TM's normal bilaterally and EAC's normal General nose exam: No nasal discharge present Face and sinus: Yes normal facial exam and Yes sinuses nontender Teeth and gingiva: dentition normal Throat: Yes posterior oropharynx normal and Yes tonsils normal (no TP congestion) Eyes Eyelids: Yes eyelids normal Conjunctivae: conjunctivae normal Pupils: Equal, round and reactive pupils present EOM: EOMs intact bilaterally Neck Neck: Yes no lymphadenopathy and Yes supple Thyroid: Thyroid normal Resp Auscultation: clear to auscultation bilaterally, no rales and no wheezes Cardio Rate: regular rate Rhythm: regular rhythm Heart sounds: no murmurs GI Palpation (GI): Soft to palpation, nontender and No hepatosplenomegaly present Auscultation: normal bowel sounds General: Yes no CVA tenderness Back/Spine/Pelvis Back: no CVA tenderness Thoracic/Lumbar Spine: thoracic and lumbar spine normal to inspection Skin Lesions: no lesions Rashes: no rashes Neuro General: patient oriented x3, moves all extremities, no focal motor deficits and CN's II-XI intact bilaterally Cranial nerves: Yes Equal, round and reactive pupils present Cognition (Neuro): normal cognition Gait exam (Neuro): Normal gait present Extrem General: Yes no clubbing, cyanosis or edema Coding Level of Care Code Est Pt Prev Care >65y(52321) Diagnoses Annual physical exam Z00.00 Moderate persistent asthma without complication J45.40 Asthma severity: moderate Asthma persistence: persistent Asthma complication type: uncomplicated Allergic rhinitis, unspecified seasonality, unspecified trigger J30.9 Allergic rhinitis trigger: unspecified Allergic rhinitis seasonality: unspecified Vitamin D deficiency E55.9 Vitiligo L80 Anxiety F41.9 Overweight (BMI 25.0-29.9) E66.3 Assessment & Plan Assessment & Plan (1) Annual physical exam: Code(s): Z00.00 - Encounter for general adult medical examination without abnormal findings Category: Medical Plan: Check labs CATHY - his lab orders have all been previously ordered but will add PSA to his labs to complete his work up He had a negative Cologuard done last year (2022) and will be due for repeat Cologuard testing in 3 years (2025); he continues to decline referral for a regular screening colonoscopy (2) Asthma: Code(s): J45.909 - Unspecified asthma, uncomplicated Category: Medical Qualifiers: Asthma severity: moderate Asthma persistence: persistent Asthma complication type: uncomplicated Qualified Code(s): J45.40 - Moderate persistent asthma, uncomplicated Plan: States that his asthma has been very well-controlled since he started getting Dupixent injections Continue Dupixent 300 mg SQ Q 2 weeks, Trelegy Ellipta 100-62.5-25 mcg 1 inhalation QD, Montelukast 10 mg QD and Albuterol HFA 2 inhalations Q 6 hours PRN Follow up with [facility] as scheduled (3) Allergic rhinitis: Code(s): J30.9 - Allergic rhinitis, unspecified Category: Medical Qualifiers: Allergic rhinitis trigger: unspecified Allergic rhinitis seasonality: unspecified Qualified Code(s): J30.9 - Allergic rhinitis, unspecified Plan: Continue Cetirizine 10 mg QD PRN, Fluticasone 50 mcg nasal spray QD PRN and Montelukast 10 mg QD (4) Vitamin D deficiency: Code(s): E55.9 - Vitamin D deficiency, unspecified Category: Medical Plan: His Vitamin D level was low on his previous labs Will start him on Vitamin D3 2000 units QD Will recheck his Vitamin D level for follow up (5) Vitiligo: Code(s): L80 - Vitiligo Category: Medical Plan: Follow up with dermatology as scheduled We tried to start patient on Opzelura previously but this was denied by his insurance (6) Anxiety: Code(s): F41.9 - Anxiety disorder, unspecified Category: Medical Plan: Follow up with psychiatry at [facility] as scheduled Patient declines offer to start him on some Rx to help with his anxiety (7) Overweight (BMI 25.0-29.9): Code(s): E66.3 - Overweight Category: Medical Plan: Reinforced diet/exercise as tolerated/lose weight Plan Follow up in 4 months Orders: Orders Prostate Specific Antigen Today N40.0 - Benign prostatic hyperplasia without lower urinary tract symptoms Medications: New cholecalciferol (vitamin D3) 50 mcg PO DAILY 90 days 90 caps 3RF E55.9 - Vitamin D deficiency, unspecified
[2024-03-15 14:43] VITALS: BP 110/80; PULSE 94; O2SAT 93; BMI 26.3
== END 2024-03-15 15:27 | disposition home or self-care (01) ==
LOC: HO.HMCH 14:27
PROVIDERS: PCP Internal Medicine; Visit Provider Internal Medicine
DX: Z00.00 Encounter for general adult medical examination without abnormal findings (principal); J45.40 Moderate persistent asthma, uncomplicated; J30.9 Allergic rhinitis, unspecified; E66.3 Overweight; Z68.26 Body mass index [BMI] 26.0-26.9, adult; E55.9 Vitamin D deficiency, unspecified; L80 Vitiligo; F41.9 Anxiety disorder, unspecified

== ENCOUNTER → 2024-03-15 14:26 | Outpatient (BNVA) | payer MEDICARE, MEDICAID, SELFPAY | PROVIDERS: PCP Internal Medicine; Visit Provider Internal Medicine | DX: Z00.01 Encounter for general adult medical examination with abnormal findings (principal); J45.40 Moderate persistent asthma, uncomplicated; J30.9 Allergic rhinitis, unspecified; E55.9 Vitamin D deficiency, unspecified; F41.9 Anxiety disorder, unspecified; L80 Vitiligo; E66.3 Overweight; Z68.26 Body mass index [BMI] 26.0-26.9, adult; Z71.3 Dietary counseling and surveillance | CPT/HCPCS: 96127; 99397 ==

== ENCOUNTER 2024-04-29 10:42 | Outpatient (AMB) | payer MEDICARE, MEDICAID, SELFPAY ==
--- NOTE | 2024-04-29 11:38 | AM.OFFWIN_ITS ---
Intake Vital Signs 04/29/24 11:39 04/29/24 11:49 Weight 184 lb BP 112/76 Blood Pressure Location Lt brachial Position Sitting Pulse 112 H 94 Pulse Source Pulse Oximeter Temp 98.1 F Temp Source Oral Pulse Oximetry (%) 90 L 98 Oxygen Delivery Method Room Air Intake Visit Reasons: EP LT ear blockage, fever, cough Intake Note: Patient here for fever, cough and left ear discomfort that has been present since friday. Patient Tobacco Use Status: Former Tobacco user Allergies No Known Allergies [No Known Allergies*] Allergy (Verified 04/29/24 11:40) Do you need a note to return to daycare/school/sports/work: No HPI EP LT ear blockage, fever, cough HPI Details This note is constructed using voice recognition software. While every effort has been made to ensure accuracy, coroner forensic technician errors may have been included. The patient is a 64 year old male who presents to the clinic today with cough, congestion, fever, left ear pain for the past 4 days. He denies shortness of breath, does report that he was around somebody who was sick just prior to the event. He has tested himself at home for COVID which has been negative x1. He took Tylenol which helped the pain slightly. [facility] Medical History (Updated 03/15/24 @ 15:44 by Kofi Witt MD) Vitamin D deficiency Anxiety Depression Vitiligo Overweight (BMI 25.0-29.9) Allergic rhinitis Asthma Surgical History No pertinent past surgical history Family History Father No problems noted. Mother No problems noted. Social History Housing: Apartment Alcohol intake: never Patient Tobacco Use Status: Former Tobacco user e-Cigarette/Vaping Use: Never Used Second Hand Smoke Exposure: Yes service: No Current occupational status: retired and disabled Cognitive needs: No Hearing needs: No Vision needs: Yes (reading glasses) Review of Systems Const All systems reviewed & are unremarkable except as noted in HPI and below Physical Exam Vital Signs: Last Vital Signs Temp 98.1 F 04/29/24 11:39 Pulse 112 H 04/29/24 11:39 BP 112/76 04/29/24 11:39 Pulse Ox 90 L 04/29/24 11:39 Oxygen Delivery Method Room Air 04/29/24 11:39 Const General: cooperative, healthy appearing, comfortable and no acute distress Orientation/consciousness: patient oriented x3 Limitations: no limitations HEENT Head: Yes normal to inspection Ears: hearing grossly normal bilaterally, external ears normal, EAC's normal, mastoids normal (no TTP) bilaterally and TM abnormal (on the left) bulging and erythematous General nose exam: Normal external nose present, Normal nares present and No nasal discharge present Face and sinus: Yes normal facial exam and Yes sinuses nontender Mouth: Normal oral and palatal mucosa present and moist mucous membranes Teeth and gingiva: dentition normal Throat: Yes tonsils normal, Yes uvula midline and Yes posterior oropharynx abnormal (Erythema) Eyes General: appearance normal, both eyes and all related structures Neck Neck: Yes normal visual inspection Resp Effort & Inspection: normal respiratory effort, able to speak in complete sentences, Actively coughing, no respiratory distress, not tachypneic, no tripod positioning and no use of accessory muscles Auscultation: clear to auscultation bilaterally Cardio Jugular venous distension: no JVD Rate: regular rate Rhythm: regular rhythm Heart sounds: S1 normal heart sound present, S2 normal heart sound present, no click, no gallops, no murmurs and no rubs Skin General skin exam: no rashes or lesions noted, elasticity normal and turgor normal Neuro General: patient oriented x3 Extrem General: Yes normal to inspection and Yes no clubbing, cyanosis or edema Assessment & Plan Assessment & Plan (1) Otitis media: Code(s): H66.90 - Otitis media, unspecified, unspecified ear Qualifiers: Otitis media type: suppurative Chronicity: acute Laterality: left Recurrence: non-recurrent Spontaneous tympanic membrane rupture: without spontaneous rupture Qualified Code(s): H66.002 - Acute suppurative otitis media without spontaneous rupture of ear drum, left ear Plan: Supportive measures encouraged and reviewed. Antibiotic sent to requested pharmacy, advised patient to take antibiotics until completed and not to stop if feeling better, unless the patient has side effects. Advised patient to follow up with primary care provider with worsening or failure to resolve. Additionally, Viral swab obtained to rule out Covid, Influenza, and RSV based on symptoms. Advised mask wearing while symptomatic and quarantine per current CDC guidelines. Reviewed at home support methods including hydration, humidification, vix vapor rub, sinus rinse, and otc treatment options. Advised follow up with worsening symptoms such as dyspnea at rest, which would require emergent evaluation. Plan See above for full details and plan. Orders: Orders SARS-CoV2/FLU/RSV Today J06.9 - Acute upper respiratory infection, unspecified Medications: New amoxicillin-pot clavulanate 875-125 mg 1 tab PO BID 7 days 14 tabs 0RF Coding Level of Care Code Est Pt Level 3 (82046) Diagnoses Non-recurrent acute suppurative otitis media of left ear without spontaneous rupture of tympanic membrane H66.002 Otitis media type: suppurative Chronicity: acute Laterality: left Recurrence: non-recurrent Spontaneous tympanic membrane rupture: without spontaneous rupture
[2024-04-29 11:39] VITALS: BP 112/76; PULSE 112; TEMP 36.7; O2SAT 90
[2024-04-29 11:49] VITALS: PULSE 94; O2SAT 98
== END 2024-04-29 12:13 | disposition home or self-care (01) ==
PROVIDERS: PCP Internal Medicine; Visit Provider Registered Nurse
DX: H66.002 Acute suppurative otitis media without spontaneous rupture of ear drum, left ear (principal)

== ENCOUNTER 2024-04-29 10:42 | Outpatient (REF) | payer MEDICARE, MEDICAID, SELFPAY ==
[2024-04-29 14:39] LABS: Influenza A PCR NEGATIVE (Negative); Influenza B PCR NEGATIVE (Negative); Resp Syncy Virus RNA Qual PCR POSITIVE (Negative); SARS COV2 PCR INHOUSE NEGATIVE (Negative)
== END 2024-04-29 10:43 | disposition home or self-care (01) ==
LOC: HO.LAB 10:42
PROVIDERS: PCP Internal Medicine; Visit Provider Registered Nurse
DX: J06.9 Acute upper respiratory infection, unspecified (principal); H66.002 Acute suppurative otitis media without spontaneous rupture of ear drum, left ear
CPT/HCPCS: 0241U; 99212

== ENCOUNTER 2024-06-10 14:07 | Outpatient (AMB) | payer MEDICARE, MEDICAID, SELFPAY ==
--- NOTE | 2024-06-10 14:10 | A.OFFVIS_ITS ---
Vital Signs 06/10/24 14:12 Height 6 ft Weight 197 lb 5.019 oz BMI 26.8 BP 118/78 Blood Pressure Location Lt brachial Position Sitting Pulse 96 Pulse Source Pulse Oximeter Pulse Oximetry (%) 94 Oxygen Delivery Method Room Air Intake Visit Reasons: Asthma Therapeutic Program Worker Required: No Allergies No Known Allergies [No Known Allergies*] Allergy (Verified 06/10/24 14:19) Medication List - Last Reconciled 06/10/24 by Vandana Fernández, SAGGER SOAK albuterol sulfate 90 mcg/actuation (Ventolin HFA) 2 puffs inhalation Q4-6H PRN albuterol sulfate 2.5 mg (0.5 mL) inhalation Q6H PRN amoxicillin-pot clavulanate 875-125 mg 1 tab PO BID 7 days cetirizine 10 mg PO DAILY PRN cholecalciferol (vitamin D3) 50 mcg PO DAILY 90 days cyclobenzaprine 5 mg PO TID PRN dupilumab (Dupixent) 300 mg (2 mL) subcut Q2W 28 days fluticasone propionate 50 mcg/actuation 2 sprays intranasal DAILY PRN 30 days [id number]-yqrphxkyx-xcbnngax 100-62.5-25 mcg (Trelegy Ellipta) 1 inh inhalation DAILY ipratropium bromide 2 sprays intranasal TID lidocaine 5% 1 patch topical DAILY loratadine 10 mg PO DAILY PRN 90 days montelukast 10 mg PO QPM 90 days HPI HPI Asthma: Details: 64-year-old gentleman, former approximately 20-25 pack-year smoker, quit 2017, with underlying history of asthma with multiple recent exacerbations and recent nasal surgery now followed for asthma and environmental allergies. Patient continues on Dupixent with good symptom control. He no longer requires using Symbicort. He denies any recent exacerbations. He rarely uses his albuterol MDI or nebs. [facility] Medical History (Updated 03/15/24 @ 15:44 by Kofi Witt MD) Vitamin D deficiency Anxiety Depression Vitiligo Overweight (BMI 25.0-29.9) Allergic rhinitis Asthma Surgical History No pertinent past surgical history Family History Father No problems noted. Mother No problems noted. Social History Housing: Apartment Alcohol intake: never Patient Tobacco Use Status: Former Tobacco user e-Cigarette/Vaping Use: Never Used Second Hand Smoke Exposure: Yes service: No Current occupational status: retired and disabled Cognitive needs: No Hearing needs: No Vision needs: Yes (reading glasses) Review of Systems Const Denies daytime sleepiness, Denies excessive sweating, Denies fatigue, Denies fever(s), Denies lethargy, Denies malaise, Denies night sweats, Denies snoring and Denies weight loss Eyes Denies blurry vision and Denies itchy eyes ENT Denies nasal congestion, Denies post nasal drip, Denies sinus pain, Denies sinus pressure and Denies other ( Thrush) Card Denies chest pain, Denies pedal edema, Denies dyspnea, Denies orthopnea and D enies paroxysmal nocturnal dyspnea Resp Denies cough, Denies hemoptysis, Denies excessive phlegm production, Denies dyspnea, Denies snoring and Denies wheezing GI Denies abdominal pain and Denies heartburn Musc Denies myalgias, Denies arthralgias and Denies joint swelling Skin/Breast Denies rash Neuro Denies memory loss and Denies seizure-like activity Psych Denies abnormal sleep pattern, Denies anxiety and Denies memory loss Endo Denies excessive sweating, Denies fatigue and Denies heat intolerance Cheo/Lymph Denies easy bruising Aller/Immun Denies itchy eyes, Denies seasonal rhinorrhea and Denies wheezing Physical Exam Vital Signs: Last Vital Signs Pulse 96 06/10/24 14:12 BP 118/78 06/10/24 14:12 Pulse Ox 94 06/10/24 14:12 Oxygen Delivery Method Room Air 06/10/24 14:12 BMI result Body Mass Index 26.8 Const General: no acute distress and alert Nutritional Appearance: not obese Orientation/consciousness: Other orientation findings ( oriented) HEENT Head: Yes atraumatic Eyes General: appearance normal, both eyes and all related structures Sclerae: sclerae normal EOM: EOMs intact bilaterally Neck Neck: Yes supple Lymphatic: no lymphadenopathy noted Resp Effort & Inspection: normal respiratory effort and no use of accessory muscles Auscultation: clear to auscultation bilaterally Cardio Rate: regular rate Rhythm: regular rhythm Heart sounds: no gallops, no murmurs and no rubs Skin General skin exam: other ( warm) Extrem General: No clubbing, No cyanosis and No edema Assessment & Plan Assessment & Plan (1) Asthma: Code(s): J45.909 - Unspecified asthma, uncomplicated Category: Medical Qualifiers: Asthma complication type: uncomplicated Asthma persistence: persistent Asthma severity: moderate Qualified Code(s): J45.40 - Moderate persistent asthma, uncomplicated Plan: Well controlled on Dupixent and albuterol MDI/nebs. Continue current regimen. (2) Environmental allergies: Code(s): Z91.09 - Other allergy status, other than to drugs and biological substances Category: Medical Plan: Well controlled on Dupixent. Continue current regimen. Coding Level of Care Code Est Pt Level 4 (13399) Diagnoses Moderate persistent asthma without complication J45.40 Asthma complication type: uncomplicated Asthma persistence: persistent Asthma severity: moderate Environmental allergies Z91.09
[2024-06-10 14:12] VITALS: BP 118/78; PULSE 96; O2SAT 94; BMI 26.8
--- OUTSIDE RECORDS SUMMARY | 2024-06-10 17:57 | XMS_ITS | Clinical Summary ---
Author Organization [facility] Address [address] [place] [address] Care Team Providers Care Motor Equipment Commanding Officer Name Role Phone Unavailable Primary Care Provider Unavailabl e Social History Tobacco Use Types Packs/Day Years Used Date Smoking Tobacco: Never Assessed Sex and Gender Information Value Date Recorded Sex Assigned at Male 03/11/2022 10:16 AM EDT Legal Sex Male 10:16 AM EDT Gender Identity Male 03/11/2022 10:16 AM EDT Sexual Orientation Straight 03/11/2022 10 :16 AM EDT Plan of Treatment Health Maintenance Due Date Last Done Comments CT Colonography 1958 Colonoscopy 1958 Colorectal Cancer Screening 1958 Depression Screening 1958 FIT DNA/Cologuard 1958 FIT 1958 FOBT 1958 Lipid Panel 1958 Sigmoidoscopy 1958 Alcohol/Substance Use Screening 1970 Tobacco Screening 1970 DTaP/Tdap/Td Vaccines (1 - Tdap) 1977 Pneumococcal Vaccine: 50+ Ye ars (1 of 1 - PCV) 02/28/2008 Zoster Vaccines (1 of 2) 02/28/2008 COVID-19 Vaccine ( - 2023-2 5 season) 2024 Influenza Vaccine (#1) 2024 RSV Patients and Pa tients Aged 60 years or older (1 - 1-dose 75+ series) 2033 HIB Vaccines Aged Out No longer eligi ble based on patient's age to complete this topic HPV Vaccines Aged Out No longer eligi ble based on patient's age to complete this topic Hepatitis A Vaccines Aged Out No long er eligible based on patient's age to complete this topic Hepatitis B Vaccines Aged Out No long er eligible based on patient's age to complete this topic IPV Vaccines Aged Out No longer eligi ble based on patient's age to complete this topic Meningococcal Vaccine Aged Out No maria del rosario ambrocio eligible based on patient's age to complete this topic RSV under 20 months Aged Out No longe r eligible based on patient's age to complete this topic Rotavirus Vaccines Aged Out No longer eligible based on patient's age to complete this topic
--- OUTSIDE RECORDS SUMMARY | 2024-06-10 17:57 | XMS_ITS | Encounter Summary ---
Author Organization [facility] Address [address] [place] [address] Care Team Providers Care Jewel Bearing Turner Name Role Phone Unavailable Primary Care Provider Unavailabl e Encounter Details Date Type Department Care Team (Latest Contact Info) Description 03/08/2021 Abstract C CONVERSIONS Dental, Provider, DDS Social History Tobacco Use Types Packs/Day Years Used Date Smoking Tobacco: Never Assessed Sex and Gender Information Value Date Recorded Sex Assigned at Male 03/11/2022 10:16 AM EDT Legal Sex Male 10:16 AM EDT Gender Identity Male 03/11/2022 10:16 AM EDT Sexual Orientation Straight 03/11/2022 10 :16 AM EDT documented as of this encounter Plan of Treatment Not on file documented as of this encounter Visit Diagnoses Not on filedocumented in this encounter
== END 2024-06-10 14:26 | disposition home or self-care (01) ==
PROVIDERS: PCP Internal Medicine; Visit Provider Internal Medicine Pulmonary Disease
DX: J45.40 Moderate persistent asthma, uncomplicated (principal); Z91.09 Other allergy status, other than to drugs and biological substances
CPT/HCPCS: 99214

== ENCOUNTER → 2024-06-10 14:07 | Outpatient (BNVA) | payer MEDICARE, MEDICAID, SELFPAY | PROVIDERS: PCP Internal Medicine; Visit Provider Internal Medicine Pulmonary Disease | DX: J45.40 Moderate persistent asthma, uncomplicated (principal); Z91.09 Other allergy status, other than to drugs and biological substances; Z87.891 Personal history of nicotine dependence | CPT/HCPCS: 99212 ==

== ENCOUNTER 2024-07-13 13:57 | Outpatient (AMB) | payer MEDICARE, MEDICAID, SELFPAY ==
--- NOTE | 2024-07-13 14:05 | MHC.PC.OV ---
Vital Signs 07/13/24 14:06 Height 6 ft Weight 194 lb 8 oz BMI 26.4 BP 126/80 Blood Pressure Location Lt brachial Position Sitting Pulse 84 Pulse Source Pulse Oximeter Pulse Oximetry (%) 98 Oxygen Delivery Method Room Air Intake Visit Reasons: [facility] f/u Offset Plate Preparation Supervisor Required: No Accompanied by: Self / Same As Patient Allergies No Known Allergies [No Known Allergies*] Allergy (Verified 07/13/24 14:40) Medication List - Last Reconciled 07/13/24 by Kofi Witt MD albuterol sulfate 90 mcg/actuation (Ventolin HFA) 2 puffs inhalation Q4-6H PRN albuterol sulfate 2.5 mg (0.5 mL) inhalation Q6H PRN cetirizine 10 mg PO DAILY PRN cholecalciferol (vitamin D3) 50 mcg PO DAILY 90 days cyclobenzaprine 5 mg PO TID PRN dupilumab (Dupixent) 300 mg (2 mL) subcut Q2W 28 days fluticasone propionate 50 mcg/actuation 2 sprays intranasal DAILY PRN 30 days vkywlmhmuyr-sueyevajq-zaicbsdy 100-62.5-25 mcg (Trelegy Ellipta) 1 inh inhalation DAILY ipratropium bromide 2 sprays intranasal TID lidocaine 5% 1 patch topical DAILY loratadine 10 mg PO DAILY PRN 90 days montelukast 10 mg PO QPM 90 days Tobacco use date assessed: 07/13/24 Last assessed Fall Risk: 07/13/24 Dental Screening Dental Screen Date: 07/13/24 HPI [facility] f/u HPI Details Patient comes in today for his follow up visit States that he feels okay He denies any headaches or dizziness Denies any chest pains, no SOB - states that his asthma has been well-controlled on his Dupixent injections and Trelegy Ellipta inhaler No nausea/vomiting, no abdominal pain No change in bowel habits noted He was not able to get his follow up labs done when they were ordered back in March 2024 [facility] Medical History Vitamin D deficiency Anxiety Depression Vitiligo Overweight (BMI 25.0-29.9) Allergic rhinitis Asthma Surgical History No pertinent past surgical history Family History Father No problems noted. Mother No problems noted. Social History Housing: Apartment Alcohol intake: never Patient Tobacco Use Status: Former Tobacco user e-Cigarette/Vaping Use: Never Used Second Hand Smoke Exposure: Yes service: No Current occupational status: retired and disabled Cognitive needs: No Hearing needs: No Vision needs: Yes (reading glasses) Questionnaire PHQ-9 Over the last 2 weeks, how often have you been bothered by any of the following problems? 1. Little interest or pleasure in doing things: more than half the days 2. Feeling down, depressed, or hopeless: more than half the days 3. Trouble falling or staying asleep, or sleeping too much: several days 4. Feeling tired or having little energy: not at all 5. Poor appetite or overeating: nearly every day 6. Feeling bad about yourself - or that you are a failure or have let yourself or your family down: several days 7. Trouble concentrating on things, such as reading the newspaper or watching television: not at all 8. Moving or speaking so slowly that other people could have noticed. Or the opposite - being so fidgety or restless that you have been moving around a lot more than usual: not at all 9. Thoughts that you would be better off or of hurting yourself in some way: not at all Total score: 9 Depression Screening Interpretation: Positive Depression Screening Follow-up: Existing condition and Community Mental Health Worker F/U Depression Screening Done: Yes 51347 - PHQ-9 Billing: Yes Source: Developed by Drs. Bebo George, Lida Somers, Maxwell Andres and colleagues, with an educational darian from [employer]. Thrive Questionnaire Date Thrive assessed: 07/13/24 I am a: Patient What is your living situation today?: I have a steady place to live Within the past 12 months, did the food you bought not last and you didn't have the money to get more?: Often true Within the past 12 months, did you worry whether your food would run out before you got money to buy more?: Often true Do you have trouble paying for medicines?: No Do you have trouble getting transportation to medical appointments?: No Do you have trouble paying your heating and electricity bill?: No Do you have trouble taking care of your child, family member or friend?: No Do you have trouble with day-to-day activities such as bathing, preparing meals, shopping, managing finances, etc.?: No Are you currently unemployed and looking for a job?: No Are you interested in more education?: No Please select the resources that you would like help with: Housing/Care Home Currently or been in a relationship where the following occur: I choose not to answer THRIVE Score: 2 AUDIT C Alcohol Use Questionnaire (AUDIT-C) 1. How often do you have a drink containing alcohol?: Never Total Score: 0 Score Reviewed/Action Taken: Yes PINO-7 AMB Questionnaire PINO-7 Date PINO - 7 assessed: 07/13/24 Feeling nervous, anxious, or on edge: 0 = Not at all Not being able to stop or control worryin = Not at all Worrying too much about different things: 0 = Not at all Trouble relaxin = Several days Being so restless that it is hard to sit still: 1 = Several days Becoming easily annoyed or irritable: 1 = Several days Feeling afraid as if something awful might happen: 0 = Not at all Total PINO-7 score (0-4 normal; 5-9 mild; 10-14 moderate; 15-21 severe): 3 Source: Developed by Drs. Bebo George, Lida Somers, Maxwell Andres and colleagues, with an educational darian from [employer]. Review of Systems Const Denies chills, Reports difficulty sleeping (at times - mostly due to anxiety), Denies fatigue, Denies fever(s) and Denies headache(s) ENT Denies dysphagia, Denies dizziness, Denies otalgia, Denies headache(s), Denies neck pain, Denies odynophagia and Denies sore throat Card Denies chest pain, Denies irregular heart rhythm, Denies palpitations and Denies dyspnea Resp Denies chest congestion, Denies cough and Denies dyspnea GI Denies abdominal pain, Denies constipation, Denies dysphagia, Denies heartburn, Denies diarrhea, Denies nausea, Denies odynophagia and Denies vomiting Denies hematuria, Denies difficulty urinating, Denies dysuria and Denies urinary frequency Musc Denies back pain, Denies arthralgias and Denies neck pain Skin/Breast Denies rash Neuro Denies dizziness, Denies headache(s) and Denies paresthesias Psych Reports anxiety and Reports depression Endo Denies fatigue and Denies palpitations Physical exam (Primary Care) Vital Signs: Last Vital Signs Pulse 84 07/13/24 14:06 BP 126/80 07/13/24 14:06 Pulse Ox 98 07/13/24 14:06 Oxygen Delivery Method Room Air 07/13/24 14:06 BMI result Body Mass Index 26.4 Tobacco/Smoking Status: Tobacco use Status Tobacco use date assessed 07/13/24 07/13/24 14:07 Patient Tobacco Use Status Former Tobacco user 07/13/24 14:07 e-Cigarette/Vaping Use Never Used 07/13/24 14:07 PHQ-9: PHQ-9 Score PHQ-9: Total score 9 07/13/24 14:14 Depression Screening Interpretation: Positive Depression Screening Follow-up: Existing condition and Community Mental Health Worker F/U Thrive Assessment: Date of Thrive Assessment Date Thrive assessed 07/13/24 07/13/24 14:07 Currently or been in a relationship where the following occur: I choose not to answer Const General: no acute distress and alert HENMT Ears: TM's normal bilaterally and EAC's normal Throat: Yes posterior oropharynx normal and Yes tonsils normal (no TP congestion) Neck Neck: Yes supple and No lymphadenopathy Thyroid: Thyroid normal Resp Auscultation: clear to auscultation bilaterally, no rales and no wheezes Cardio Rate: regular rate Rhythm: regular rhythm Heart sounds: no murmurs GI Palpation (GI): Soft to palpation and nontender Auscultation: normal bowel sounds General: Yes no CVA tenderness Back/Spine/Pelvis Back: no CVA tenderness Thoracic/Lumbar Spine: No lumbar spinal tenderness Skin Rashes: no rashes Extrem General: Yes no clubbing, cyanosis or edema Coding Level of Care Code Est Pt Level 4 (62905) Diagnoses Moderate persistent asthma without complication J45.40 Asthma severity: moderate Asthma persistence: persistent Asthma complication type: uncomplicated Allergic rhinitis, unspecified seasonality, unspecified trigger J30.9 Allergic rhinitis trigger: unspecified Allergic rhinitis seasonality: unspecified Vitamin D deficiency E55.9 Vitiligo L80 Anxiety F41.9 Overweight (BMI 25.0-29.9) E66.3 Additional Codes PHQ-9 - 76076 - PHQ-9 Billing: Yes ([id number]) Assessment & Plan Assessment & Plan (1) Asthma: Code(s): J45.909 - Unspecified asthma, uncomplicated Category: Medical Qualifiers: Asthma severity: moderate Asthma persistence: persistent Asthma complication type: uncomplicated Qualified Code(s): J45.40 - Moderate persistent asthma, uncomplicated Plan: Patient states that his asthma has been very well-controlled since he started getting Dupixent injections Continue Dupixent 300 mg SQ Q 2 weeks, Trelegy Ellipta 100-62.5-25 mcg 1 inhalation QD, Montelukast 10 mg QD and Albuterol HFA 2 inhalations Q 6 hours PRN Follow up with [facility] Pulmonary as scheduled He was not able to get his follow up labs done yet and is instructed to go get these done ACTHY as he has not had any follow up labs done since 2022 - his previous lab orders have been updated (2) Allergic rhinitis: Code(s): J30.9 - Allergic rhinitis, unspecified Category: Medical Qualifiers: Allergic rhinitis trigger: unspecified Allergic rhinitis seasonality: unspecified Qualified Code(s): J30.9 - Allergic rhinitis, unspecified Plan: Continue Cetirizine 10 mg QD PRN, Fluticasone 50 mcg nasal spray QD PRN and Montelukast 10 mg QD (3) Vitamin D deficiency: Code(s): E55.9 - Vitamin D deficiency, unspecified Category: Medical Plan: Continue Vitamin D3 2000 units QD (4) Vitiligo: Code(s): L80 - Vitiligo Category: Medical Plan: Follow up with dermatology as scheduled We tried to start patient on Opzelura previously but this was denied by his insurance (5) Anxiety: Code(s): F41.9 - Anxiety disorder, unspecified Category: Medical Plan: Follow up with psychiatry at [facility] as scheduled Patient has declined offers to start him on some Rx to help with his anxiety (6) Overweight (BMI 25.0-29.9): Code(s): E66.3 - Overweight Category: Medical Plan: Reinforced diet/exercise as tolerated/lose weight - he has been able to lose a few pounds since his last visit Plan Follow up in 4 months
[2024-07-13 14:06] VITALS: BP 126/80; PULSE 84; O2SAT 98; BMI 26.4
--- OUTSIDE RECORDS SUMMARY | 2024-07-13 17:37 | XMS_ITS | Encounter Summary ---
Author Organization [facility] Address [address] [place] [address] Care Team Providers Care Qualified Craft Worker Electrician Name Role Phone Unavailable Primary Care Provider [...]
--- OUTSIDE RECORDS SUMMARY | 2024-07-13 17:37 | XMS_ITS | Clinical Summary ---
Author Organization [facility] Address [address] [place] [address] Care Team Providers Care Barrel Raiser Name Role Phone Unavailable Primary Care Provider [...]
== END 2024-07-13 14:47 | disposition home or self-care (01) ==
PROVIDERS: PCP Internal Medicine; Visit Provider Internal Medicine
DX: J45.40 Moderate persistent asthma, uncomplicated (principal); J30.9 Allergic rhinitis, unspecified; E55.9 Vitamin D deficiency, unspecified; L80 Vitiligo; F41.9 Anxiety disorder, unspecified; E66.3 Overweight

== ENCOUNTER → 2024-07-13 13:57 | Outpatient (BNVA) | payer MEDICARE, MEDICAID, SELFPAY | PROVIDERS: PCP Internal Medicine; Visit Provider Internal Medicine | DX: J45.40 Moderate persistent asthma, uncomplicated (principal); J30.9 Allergic rhinitis, unspecified; E55.9 Vitamin D deficiency, unspecified; L80 Vitiligo; F41.9 Anxiety disorder, unspecified; E66.3 Overweight; Z68.26 Body mass index [BMI] 26.0-26.9, adult; Z71.3 Dietary counseling and surveillance | CPT/HCPCS: 96127; 99212 ==

== ENCOUNTER 2024-07-16 09:41 | Outpatient (REF) | payer MEDICARE, MEDICAID, SELFPAY ==
[2024-07-16 09:59] LABS: MANUAL DIFF FLAG NO
[2024-07-16 10:33] LABS: Basophils Absolute Auto 0.1 X10*3/uL (0.0-0.2); Basophils Percent Auto 0.7 % (0-2); Eosinophils Absolute Auto 0.6 X10*3/uL (0.0-0.4); Eosinophils Percent Auto 8.3 % (0-4); Hematocrit 45.3 % (42.0-52.0); Hemoglobin 14.6 g/dl (14.0-18.0); Imm Gran Abs Auto 0.01 X10*3/uL (0.00-0.03); Imm Gran Pct Auto 0.1 % (0.0-0.4); Lymphocytes Absolute Auto 2.5 X10*3/uL (1.2-4.9); Lymphocytes Percent Auto 36.4 % (20-40); Mean Corpuscular HGB Conc 32.2 g/dl (31.0-36.0); Mean Corpuscular Hemoglobin 28.8 pg (27.0-33.0); Mean Corpuscular Volume 89.3 fL (80.0-98.0); Mean Platelet Volume 11.2 fL (9.4-12.4); Monocytes Absolute Auto 0.7 X10*3/uL (0.1-1.2); Monocytes Percent Auto 10.5 % (2-11); Platelet Count 231 X10*3/uL (160-400); Red Blood Count 5.07 X10*6/uL (4.60-5.80); Red Cell Distribution Width 12.2 % (11.0-16.0); White Blood Count 6.8 X10*3/uL (4.8-10.8)
[2024-07-16 11:19] LABS: Alanine Aminotransferase 14 U/L (0-40); Albumin Level 4.3 g/dL (3.5-5.0); Alkaline Phosphatase 71 U/L (39-117); Anion Gap 10 (12-20); Aspartate Amino Transferase 30 U/L (5-37); Bilirubin Total 0.8 mg/dL (0.0-1.0); Blood Urea Nitrogen 20 mg/dL (9-16); Calcium 9.1 mg/dL (8.4-10.2); Carbon Dioxide 25 mmol/L (22-29); Chloride 108 mmol/L (96-108); Cholesterol 156 mg/dL (<200); Estimated Glomerular Filt Rate > 60; Glucose Fasting 97 mg/dL (60-99); HDL Cholesterol 43 mg/dL (>40); LDL Cholesterol Calculated 97 mg/dL (<100); Potassium 3.8 mmol/L (3.3-5.1); Sodium 139 mmol/L (135-145); Total Protein 7.7 g/dL (6.5-8.0); Triglycerides 83 mg/dL (<150)
[2024-07-16 11:21] LABS: TSH reflex Free T4 1.64 uIU/mL (0.32-4.0); Vitamin D 25-OH Total 10.9 ng/mL (>30)
[2024-07-16 12:01] LABS: Prostate Specific Antigen 2.94 ng/mL (<0.05-4.0)
== END 2024-07-16 09:42 | disposition home or self-care (01) ==
LOC: HO.LAB 09:41
PROVIDERS: PCP Internal Medicine; Visit Provider Internal Medicine
DX: Z00.00 Encounter for general adult medical examination without abnormal findings (principal); E78.00 Pure hypercholesterolemia, unspecified; E55.9 Vitamin D deficiency, unspecified; N40.0 Benign prostatic hyperplasia without lower urinary tract symptoms; D64.9 Anemia, unspecified; Z12.5 Encounter for screening for malignant neoplasm of prostate
CPT/HCPCS: 36415; 80053; 80061; 82306; 84153; 84443; 85025

== ENCOUNTER 2024-11-22 12:57 | Outpatient (AMB) | payer MEDICARE, MEDICAID, SELFPAY ==
--- NOTE | 2024-11-22 13:04 | MHC.PC.OV ---
Vital Signs 11/22/24 13:06 Height 6 ft Weight 188 lb BMI 25.5 BP 116/66 Blood Pressure Location Lt brachial Position Sitting Pulse 74 Pulse Source Pulse Oximeter Pulse Oximetry (%) 97 Oxygen Delivery Method Room Air Intake Visit Reasons: asthma Intake Note: Patient here for a follow up Asthma Services Engineer Required: No Accompanied by: Self / Same As Patient Allergies No Known Allergies (No Known Allergies*) Allergy (Verified 11/22/24 13:33) Medication List - Last Reconciled 11/22/24 by Kofi Witt MD albuterol sulfate 2.5 mg (0.5 mL) inhalation Q6H PRN albuterol sulfate 90 mcg/actuation (Ventolin HFA) 2 puffs inhalation Q4-6H PRN cetirizine 10 mg PO DAILY PRN cholecalciferol (vitamin D3) 50 mcg PO DAILY 90 days cyclobenzaprine 5 mg PO TID PRN dupilumab (Dupixent) 300 mg (2 mL) subcut Q2W 28 days fluticasone propionate 50 mcg/actuation 2 sprays intranasal DAILY PRN 30 days znfscymevxr-ihrkwwazy-ztyapywv 100-62.5-25 mcg (Trelegy Ellipta) 1 inh inhalation DAILY ipratropium bromide 2 sprays intranasal TID lidocaine 5% 1 patch topical DAILY loratadine 10 mg PO DAILY PRN 90 days montelukast 10 mg PO QPM 90 days Tobacco use date assessed: 11/22/24 Fall risk assessment: No Falls in past year Last assessed Fall Risk: 11/22/24 Dental Screening Dental Screen Date: 11/22/24 Did you have a dental visit in the last 12 months?: No Did you have a dental problem in the last 6 months where you did not have access to dental care?: No Was dental information given to patient?: Patient has dentist HPI asthma HPI Details Patient comes in today for his follow up visit States that he currently feels okay although he did have a mild bout of asthma flare up sometime last week States that his asthma symptoms are now starting to get back under control with his prescribed inhalers and that he will need his inhalers Rx refilled today He also continues to get his Dupixent injections from pulmonary regularly and feels that his injections have helped him a lot He denies any headaches or dizziness Denies any chest pains, no increased SOB No nausea/vomiting, no abdominal pain No change in bowel habits noted He had some labs done back in July 2024 and would like to know if his labs showed any concerning or unexpected results [facility] Medical History Vitamin D deficiency Anxiety Depression Vitiligo Overweight (BMI 25.0-29.9) Allergic rhinitis Asthma Surgical History No pertinent past surgical history Family History Father No problems noted. Mother No problems noted. Social History Housing: Apartment Alcohol intake: never Patient Tobacco Use Status: Former Tobacco user Tobacco use type: Cigarette e-Cigarette/Vaping Use: Never Used Second Hand Smoke Exposure: Yes service: No Current occupational status: retired and disabled Cognitive needs: No Hearing needs: No Vision needs: Yes (reading glasses) Questionnaire PHQ-9 Over the last 2 weeks, how often have you been bothered by any of the following problems? 1. Little interest or pleasure in doing things: more than half the days 2. Feeling down, depressed, or hopeless: more than half the days 3. Trouble falling or staying asleep, or sleeping too much: several days 4. Feeling tired or having little energy: not at all 5. Poor appetite or overeating: nearly every day 6. Feeling bad about yourself - or that you are a failure or have let yourself or your family down: several days 7. Trouble concentrating on things, such as reading the newspaper or watching television: not at all 8. Moving or speaking so slowly that other people could have noticed. Or the opposite - being so fidgety or restless that you have been moving around a lot more than usual: not at all 9. Thoughts that you would be better off or of hurting yourself in some way: not at all Total score: 9 Depression Screening Interpretation: Positive Depression Screening Follow-up: Existing condition and Community Mental Health Worker F/U Depression Screening Done: Yes 03636 - PHQ-9 Billing: Yes Source: Developed by Drs. Bebo George, Lida Somers, Maxwell Andres and colleagues, with an educational darian from [employer]. Thrive Questionnaire Date Thrive assessed: 11/22/24 I am a: Patient What is your living situation today?: I have a steady place to live Within the past 12 months, did the food you bought not last and you didn't have the money to get more?: Often true Within the past 12 months, did you worry whether your food would run out before you got money to buy more?: Often true Do you have trouble paying for medicines?: No Do you have trouble getting transportation to medical appointments?: No Do you have trouble paying your heating and electricity bill?: No Do you have trouble taking care of your child, family member or friend?: No Do you have trouble with day-to-day activities such as bathing, preparing meals, shopping, managing finances, etc.?: No Are you currently unemployed and looking for a job?: No Are you interested in more education?: No Please select the resources that you would like help with: Housing/Halfway Currently or been in a relationship where the following occur: I choose not to answer THRIVE Score: 2 AUDIT C Alcohol Use Questionnaire (AUDIT-C) 1. How often do you have a drink containing alcohol?: Never Total Score: 0 Score Reviewed/Action Taken: Yes PINO-7 AMB Questionnaire PINO-7 Date PINO - 7 assessed: 11/22/24 Feeling nervous, anxious, or on edge: 0 = Not at all Not being able to stop or control worryin = Not at all Worrying too much about different things: 0 = Not at all Trouble relaxin = Several days Being so restless that it is hard to sit still: 1 = Several days Becoming easily annoyed or irritable: 1 = Several days Feeling afraid as if something awful might happen: 0 = Not at all Total PINO-7 score (0-4 normal; 5-9 mild; 10-14 moderate; 15-21 severe): 3 Source: Developed by Drs. Bebo George, Lida Somers, Maxwell Andres and colleagues, with an educational darian from [employer]. Review of Systems Const Denies chills, Reports difficulty sleeping (at times - mostly due to anxiety), Denies fatigue, Denies fever(s) and Denies headache(s) ENT Denies dysphagia, Denies dizziness, Denies otalgia, Denies headache(s), Denies neck pain, Denies odynophagia and Denies sore throat Card Denies chest pain, Denies irregular heart rhythm, Denies palpitations and Denies dyspnea Resp Reports chest congestion (mild - improving), Reports cough (on and off), Denies dyspnea and Denies wheezing GI Denies abdominal pain, Denies constipation, Denies dysphagia, Denies heartburn, Denies diarrhea, Denies nausea, Denies odynophagia and Denies vomiting Denies hematuria, Denies difficulty urinating, Denies dysuria and Denies urinary frequency Musc Denies back pain, Denies arthralgias and Denies neck pain Skin/Breast Denies rash Neuro Denies dizziness, Denies headache(s) and Denies paresthesias Psych Reports anxiety and Reports depression Endo Denies fatigue and Denies palpitations Aller/Immun Denies wheezing Physical exam (Primary Care) Vital Signs: Last Vital Signs Pulse 74 11/22/24 13:06 BP 116/66 11/22/24 13:06 Pulse Ox 97 11/22/24 13:06 Oxygen Delivery Method Room Air 11/22/24 13:06 BMI result Body Mass Index 25.5 Tobacco/Smoking Status: Tobacco use Status Tobacco use date assessed 11/22/24 11/22/24 13:10 Patient Tobacco Use Status Former Tobacco user 11/22/24 13:10 Tobacco use type Cigarette 11/22/24 13:10 e-Cigarette/Vaping Use Never Used 11/22/24 13:10 PHQ-9: PHQ-9 Score PHQ-9: Total score 9 11/22/24 13:33 Depression Screening Interpretation: Positive Depression Screening Follow-up: Existing condition and Community Mental Health Worker F/U Thrive Assessment: Date of Thrive Assessment Date Thrive assessed 11/22/24 11/22/24 13:10 Currently or been in a relationship where the following occur: I choose not to answer Const General: no acute distress and alert HENMT Ears: TM's normal bilaterally and EAC's normal Throat: Yes posterior oropharynx normal and Yes tonsils normal (no TP congestion) Neck Neck: Yes supple and No lymphadenopathy Thyroid: Thyroid normal Resp Auscultation: no crackles, no rales and wheezes (occasional, faint expiratory wheezing bilaterally) expiratory wheezes Cardio Rate: regular rate Rhythm: regular rhythm Heart sounds: no murmurs GI Palpation (GI): Soft to palpation and nontender Auscultation: normal bowel sounds General: Yes no CVA tenderness Back/Spine/Pelvis Back: no CVA tenderness Thoracic/Lumbar Spine: No lumbar spinal tenderness Skin Rashes: no rashes Extrem General: Yes no clubbing, cyanosis or edema Results Reviewed Results Reviewed: Laboratory Tests 07/16/24 09:57 WBC 6.8 Hgb 14.6 Hct 45.3 Plt Count 231 Sodium 139 Potassium 3.8 Creatinine 0.95 Estimated GFR > 60 Fasting Glucose 97 Calcium 9.1 AST 30 ALT 14 Triglycerides 83 Cholesterol 156 LDL Cholesterol, Calc 97 HDL Cholesterol 43 Prostate Specific Ag 2.94 25-OH Vitamin D Total 10.9 L TSH 1.64 Coding Level of Care Code Est Pt Level 4 (54860) Diagnoses Moderate persistent asthma without complication J45.40 Asthma severity: moderate Asthma persistence: persistent Asthma complication type: uncomplicated Allergic rhinitis, unspecified seasonality, unspecified trigger J30.9 Allergic rhinitis trigger: unspecified Allergic rhinitis seasonality: unspecified Vitamin D deficiency E55.9 Vitiligo L80 Anxiety F41.9 Overweight (BMI 25.0-29.9) E66.3 Additional Codes PHQ-9 - 55445 - PHQ-9 Billing: Yes ([id number]) Assessment & Plan Assessment & Plan (1) Asthma: Code(s): J45.909 - Unspecified asthma, uncomplicated Category: Medical Qualifiers: Asthma severity: moderate Asthma persistence: persistent Asthma complication type: uncomplicated Qualified Code(s): J45.40 - Moderate persistent asthma, uncomplicated Plan: Patient states that his asthma has been very well-controlled since he started getting Dupixent injections although he did have a bout of asthma exacerbation last week, which she states has been slowly improving Continue Dupixent 300 mg SQ Q 2 weeks, Trelegy Ellipta 100-62.5-25 mcg 1 inhalation QD, Montelukast 10 mg QD and Albuterol HFA 2 inhalations Q 6 hours PRN [place] [facility] [place] [place] Results of his labs done back in July 2024 reviewed and discussed with patient (2) Allergic rhinitis: Code(s): J30.9 - Allergic rhinitis, unspecified Category: Medical Qualifiers: Allergic rhinitis trigger: unspecified Allergic rhinitis seasonality: unspecified Qualified Code(s): J30.9 - Allergic rhinitis, unspecified Plan: Continue Cetirizine 10 mg QD PRN, Fluticasone 50 mcg nasal spray QD PRN and Montelukast 10 mg QD (3) Vitamin D deficiency: Code(s): E55.9 - Vitamin D deficiency, unspecified Category: Medical Plan: He is advised that his Vitamin D level is still low on his recent labs Continue Vitamin D3 2000 units QD (4) Vitiligo: Code(s): L80 - Vitiligo Category: Medical Plan: Follow up with dermatology as scheduled We tried to start patient on Opzelura previously but this was denied by his insurance (5) Anxiety: Code(s): F41.9 - Anxiety disorder, unspecified Category: Medical Plan: Follow up with [facility]ry at [facility] as scheduled Patient has declined offers to start him on some Rx to help with his anxiety (6) Overweight (BMI 25.0-29.9): Code(s): E66.3 - Overweight Category: Medical Plan: Reinforced diet/exercise as tolerated/lose weight Plan To return as scheduled in March 2025 for his next annual physical examination Orders: Orders Comprehensive [place]. Panel Fast 03/12/25 E78.00 - Pure hypercholesterolemia, unspecified, Z00.00 - Encounter for general adult medical examination without abnormal findings Lipid Panel 03/12/25 E78.00 - Pure hypercholesterolemia, unspecified, Z00.00 - Encounter for general adult medical examination without abnormal findings TSH reflex Free T4 03/12/25 E78.00 - Pure hypercholesterolemia, unspecified, Z00.00 - Encounter for general adult medical examination without abnormal findings Vitamin D 25-OH Total 03/12/25 E55.9 - Vitamin D deficiency, unspecified, Z00.00 - Encounter for general adult medical examination without abnormal findings Complete Blood Count Auto Diff 03/12/25 D64.9 - Anemia, unspecified, Z00.00 - Encounter for general adult medical examination without abnormal findings UA CC w/rflx Micro + Cult 03/12/25 R30.0 - Dysuria, Z00.00 - Encounter for general adult medical examination without abnormal findings Medications: Refilled ipratropium bromide 2 sprays intranasal TID 15 mL 6RF albuterol sulfate 90 mcg/actuation (Ventolin HFA) 2 puffs inhalation Q4-6H PRN 8.5 grams 3RF shortness of breath or wheezing J45.901 - Unspecified asthma with (acute) exacerbation anizoanhpop-jrtbtrgte-jbentafm 100-62.5-25 mcg (Trelegy Ellipta) 1 inh inhalation DAILY 60 ea 3RF
[2024-11-22 13:06] VITALS: BP 116/66; PULSE 74; O2SAT 97; BMI 25.5
--- OUTSIDE RECORDS SUMMARY | 2024-11-22 13:55 | XMS_ITS | Encounter Summary ---
Author Organization [employer] Address [address] [place] [address] Care Team Providers Care Client Engagement Specialist Name Role Phone Unavailable Primary Care Provider Unavailabl e Encounter Details Date Type Department Care Team (Latest Contact Info) Description 03/08/2021 Abstract [facility] CONVERSIONS Dental, Provider, DDS Social History Tobacco [...]
== END 2024-11-22 13:35 | disposition home or self-care (01) ==
LOC: HO.HMCH 12:57
PROVIDERS: PCP Internal Medicine; Visit Provider Internal Medicine
DX: J45.40 Moderate persistent asthma, uncomplicated (principal); J30.9 Allergic rhinitis, unspecified; E55.9 Vitamin D deficiency, unspecified; L80 Vitiligo; F41.9 Anxiety disorder, unspecified; E66.3 Overweight

== ENCOUNTER → 2024-11-22 12:57 | Outpatient (BNVA) | payer MEDICARE, MEDICAID, SELFPAY | PROVIDERS: PCP Internal Medicine; Visit Provider Internal Medicine | DX: J45.40 Moderate persistent asthma, uncomplicated (principal); J30.9 Allergic rhinitis, unspecified; E55.9 Vitamin D deficiency, unspecified; L80 Vitiligo; F41.9 Anxiety disorder, unspecified; E66.3 Overweight; Z68.25 Body mass index [BMI] 25.0-25.9, adult; Z71.3 Dietary counseling and surveillance | CPT/HCPCS: 96127; 99212 ==